=== PATIENT | female | born 1950 | race Caucasian/White ===

== ENCOUNTER 2023-10-08 14:36 | Inpatient (IN) ==
[2023-10-08] MEDS ORDERED: Patient's ALLERGY Info needs ENTERED SCH (14:43)
[2023-10-08] MEDS ORDERED: Patient's HEIGHT &/or WEIGHT Needed SCH (14:44)
--- NOTE | 2023-10-08 14:45 | ED Triage Note ---
Date of Service October 08, 2023 Provider in Triage Author: Mamta Perez History of Present Illness This patient was briefly evaluated while in triage. An abbreviated physical exam was performed. This patient is a 73-year-old Female who presents to the ED for evaluation of bilateral rib pain with radiation to the back. Pain started 3 days ago. She states it is better when she lays on her stomach. She has had vomiting. She was seen at the ER in [place] 3 days ago when the pain started and states that she was told it was a pulled muscle. She has been taking Naprosyn at home for the pain. Physical Exam VITALS: Vitals are noted on the nurse's note and reviewed by myself. GENERAL: This is a 73-year-old female, sitting in a wheelchair in triage, crying in pain. SKIN: The skin was without rashes. HEART: Regular rate and rhythm without murmurs gallops or rubs. LUNGS: Clear to auscultation bilaterally without wheezes, rales or rhonchi. ABDOMEN: Positive bowel sounds x 4. Soft, nontender to palpation. MUSCULOSKELETAL: Tenderness to palpation with very light palpation throughout the mid back/flank. NEURO: Patient was alert and oriented to person place and time. Initial orders for labs and / or imaging were placed and patient was placed in the waiting area until a bed is available. Please see further documentation for the full ED course.
--- NOTE | 2023-10-08 15:14 | XRay Report ---
[place] CHEST RADIOGRAPH CLINICAL HISTORY: Bilateral rib pain. COMPARISON STUDY: No previous studies for comparison. FINDINGS: There is no pneumothorax or pleural effusion. No consolidation is identified. 2.9 cm right midlung nodular density is present. Cardiac size is normal. Mediastinal contours are normal. There is no evidence for pulmonary edema. No rib fractures are identified although sensitivity is diminished given radiographic technique. Suspected calcific tendinitis of the right rotator cuff. IMPRESSION: 1. 2.9 cm right midlung nodular density. A chest CT is recommended to exclude a pulmonary nodule. 2. No acute cardiopulmonary findings. ACT 112: Positive. There are findings on this exam that require communication between the performing entity and the patient following Patient Test Result Information Act ([place] Act 112) guidelines. Electronically signed by: Sae Carrizales M.D. 10/08/2023 3:12 PM
[2023-10-08 16:24] LABS: Basophils # (auto) 0.02 K/uL (0.00-0.20); Basophils % (auto) 0.2 %; Eosinophils # (auto) 0.01 K/uL (0.00-0.50); Eosinophils % (auto) 0.1 %; Hematocrit (blood only) 40.3 % (37.0-47.0); Hemoglobin 14.7 g/dl (12.0-16.0); Immature Granulocytes # (auto) 0.04 K/uL (0.01-0.20); Immature Granulocytes % (auto) 0.4 %; Lymphocytes # (auto) 1.75 K/uL (1.20-3.40); Mean Corpuscular Hemoglobin 33.6 pg (25.0-34.0); Mean Corpuscular Hgb Conc 36.5 g/dL (32.0-36.0); Mean Platelet Volume 9.6 fL (9.4-12.4); Monocytes # (auto) 1.04 K/uL (0.11-0.59); Monocytes % (auto) 9.5 %; Neutrophils # (auto) 8.05 K/uL (1.40-6.50); Neutrophils % (auto) 73.8 %; Platelet Count 291 K/uL (130-400); RDW Coefficient of Variation 12.4 % (11.5-14.5); RDW Standard Deviation 41.5 fL (36.4-46.3); Red Blood Count 4.38 M/uL (4.20-5.40); White Blood Count 10.91 K/ul (4.8-10.8)
[2023-10-08 17:09] LABS: Alanine Aminotransferase 25 U/L (7-52); Albumin Globulin Ratio 1.3 (0.9-2); Albumin Level 4.3 gm/dl (3.4-5.0); Alkaline Phosphatase 91 U/L (34-104); Anion Gap 10 (3-11); BUN Creatinine Ratio 12.7 (10-20); Bilirubin,Total 0.9 mg/dl (0.2-1.0); Blood Urea Nitrogen 7 mg/dl (6-23); Calcium 9.9 mg/dl (8.6-10.3); Carbon Dioxide 28 mmol/L (21-32); Chloride 87 mmol/L (98-107); Est GFR (African American) 106.3 ml/min; Est GFR (Non-African American) 91.8 ml/min; Globulin 3.4 gm/dl (2.5-4.0); Glucose 95 mg/dl (70-99(Fasting)); Lipase 15 U/L (11-82); Sodium 125 mmol/L (136-145); Total Protein 7.7 gm/dl (6.0-8.3); Troponin I High Sensitivity 8.5 pg/ml (0-14)
[2023-10-08 17:15] LABS: Potassium 3.8 mmol/L (3.5-5.1)
[2023-10-08 17:20] LABS: Aspartate Aminotransferase 34 U/L (13-39)
[2023-10-08] MEDS ORDERED: OPTIRAY 320 500ml IV ONE (18:59)
--- NOTE | 2023-10-08 19:38 | CT Scan Report ---
Exam(s): CT CHEST With Contrast IV Amt: 88ML OPTIRAY 320 EXAM: CT Chest With Intravenous Contrast CLINICAL HISTORY: Reason for exam: chest pain; back pain. TECHNIQUE: Axial computed tomography images of the chest with intravenous contrast. CTDI is 15.98 mGy and DLP is 483.99 mGy-cm. Automated exposure control was utilized for the study. A dose lowering technique was utilized adhering to the principles of ALARA. CONTRAST: Patient received 88ML OPTIRAY 320 of IV contrast COMPARISON: No relevant prior studies available. FINDINGS: Lungs: Mild centrilobular emphysema. Small focal consolidation and surrounding patchy opacities within the anterior aspect of the right upper/right middle lobes. Additional patchy alveolar opacities in the posterior right lung. Left lung appears clear. Pleural space: Unremarkable. No pneumothorax. No significant effusion. Heart: Coronary artery atherosclerosis, aortic valvular calcifications, and mitral annular calcifications. Normal heart size. No pericardial effusion. Thyroid: Unremarkable thyroid gland. Bones/joints: No acute fracture or dislocation. Chronic 70% compression fracture at T7. Soft tissues: Unremarkable. Vasculature: No thoracic aortic aneurysm or dissection. Normal caliber main pulmonary artery. Lymph nodes: Unremarkable. No lymphadenopathy. IMPRESSION: Right lung pneumonia, predominantly involving the anterior right upper/middle lobes. Imaging follow-up to resolution recommended. Electronically signed by: Cami Tabor M.D. 10/08/23 19:37 PM
[2023-10-08] MEDS ORDERED: DOXYCYCLINE HYCLATE 100 MG CAP PO STA (20:55)
[2023-10-08] MEDS ORDERED: SODIUM CHLORIDE 0.9% 1,000 ML IV ONE (20:55)
[2023-10-08] MEDS ORDERED: MoRPHine SULFATE 4 MG/ML 1 ML CARP\\VIAL IV STA (21:13)
--- NOTE | 2023-10-08 21:16 | Emergency Department Note ---
Impression & Plan Pneumonia ED Provider Note HISTORY OF PRESENT ILLNESS: Patient is a 73-year-old female presenting with bilateral chest pain and bilateral upper back pain. Reports that she has been having symptoms for the last 6 days. Reports pain initially started 6 days ago and she was evaluated at an outside emergency department 3 days ago after continued pain. Reports that she was told it was muscle spasms and was prescribed naproxen. She reports that the pain significantly worsened in the last 48 hours. Naproxen is not making her pain any better. Denies any significant shortness of breath. Reports that any movements cause the pain to be worse. She had an episode of vomiting. Denies any history of DVT or PE. She is not on any anticoagulation. Denies any abdominal pain. Describes the diffuse anterior and posterior chest pain as a pressure and sharp sensation. Reports that has been constant since onset 6 days ago but has progressively worsened. Denies any significant cough or fever at home. ROS: as above PHYSICAL EXAM: Constitutional: Patient appears in no acute distress. HENT: Head: Normocephalic and atraumatic. Eyes: EOMI, PERRL Mouth/Throat: Mucous membranes moist. Neck: Trachea midline. Neck supple. Cardiovascular: RRR, No murmurs, rubs or gallops. Intact distal pulses. Pulmonary/Chest: No respiratory distress. Breath sounds clear and equal bilaterally. No wheezes or rales. Abdominal: Abdomen soft, no tenderness, rebound or guarding. Back: No midline spinal tenderness and no CVA tenderness. Patient has diffuse tenderness to palpation of her upper back and anterior chest. Any slight palpation of the upper back causes the patient to cry in pain. Musculoskeletal: No edema, tenderness or deformity noted. Skin: Warm and dry. No rash, erythema, pallor or cyanosis Psychiatric: Appropriate mood and affect for situation. Neurological: Alert and keenly responsive. CN II-XII grossly intact, moving all extremities equally and fully. MDM: - Vitals signs showed hypertension. - History obtained via patient. Patient presents with bilateral chest pain and bilateral upper back pain. Patient reports has been having symptoms for the last 6 days. Reports the pain initially started 6 days ago under her bilateral breast and wraps around into her bilateral upper back. States that she was seen in outside facility 3 days ago and was told it was muscle spasms. She states that the symptoms have significantly worsened in the last 48 hours. States the pain is a constant pressure and sharp sensation. Denies any significant shortness of breath. Denies any DVT or PE history. - Chronic conditions affecting care: none - Differential diagnoses include, but are not limited to: Acute coronary syndrome; pulmonary embolism; dissection; tension pneumothorax; esophageal rupture; pneumonia - Order placed for continuous cardiac monitoring. At this time, monitor showed rate of 81 bpm with normal sinus rhythm, per my interpretation. - External medical records reviewed. - EKG interpreted by myself showed normal sinus rhythm. Rate 81 bpm. QTc 408. No acute ischemic changes - Laboratory workup interpreted by myself showed slight leukocytosis (WBC 10.91); hyponatremia (Na 125); normal troponin; normal lipase - CXR negative for obvious pneumonia, per my interpretation. Radiology notes a right-sided pulmonary nodule - CT chest with IV contrast showed a right lung pneumonia involving the right upper/middle lobes. - PDMP reviewed. Patient initially given 4 mg IV morphine for her significant pain. On reassessment, she still complaining of pain and was given 30 mg of IV Toradol. - Given 1L NS and PO doxycycline for pneumonia. - Initally plan to discharge the patient home, given that she does not have any significant leukocytosis or oxygen requirement. However, she is still complaining of significant pain and reports she cannot go home like this - Discussion was had with child care attendant school about patient's case and need for admission - Hospitalist, Dr. Klein, consulted for admission - Patient admitted to [facility] Hospitalist service for further evaluation and management. ASSESSMENT AND PLAN: Diagnosis: pneumonia; back pain Plan: admit Past Med/Surg History Social History Smoking Status: Never smoker Feels Safe at Home: Yes Allergies Allergies Allergy/AdvReac Type Severity Reaction Status Date / Time ibuprofen [From Motrin] AdvReac Vomiting Verified 10/08/23 23:53 Home Meds Home Medications Medication Instructions Recorded Confirmed carvedilol 3.125 mg tablet 3.125 mg PO BID 10/09/23 10/09/23 escitalopram oxalate 20 mg tablet 20 mg PO DAILY 10/09/23 10/09/23 lisinopril 10 mg tablet 10 mg PO DAILY 10/09/23 10/09/23 omeprazole 20 mg capsule,delayed 20 mg PO DAILY 10/09/23 10/09/23 release rosuvastatin 5 mg tablet 5 mg PO DAILY 10/09/23 10/09/23 Results & Data (ED) Vital Signs Vital Signs - 24 hr 10/08/23 14:43 10/08/23 20:37 10/08/23 20:50 Temperature 36.9 C Temperature Source Temporal Artery Scan Pulse Rate 97 H 117 H Pulse Rate [Apical] 71 Pulse Rhythm [Apical] Regular Pulse Strength [Apical] Normal Respiratory Rate 20 17 Respiratory Effort / Characteristics Non-Labored Spontaneous Non-Labored Spontaneous Respiratory Depth Normal Normal Respiratory Pattern Regular Blood Pressure 186/105 H Blood Pressure [Right Arm] 150/95 H Blood Pressure Mean 132 Blood Pressure Mean [Right Arm] 113 Blood Pressure Position [Right Arm] Semi-fowlers Pulse Oximetry 93 97 Oxygen Delivery Method Room Air Room Air Sepsis Recent Fever Within 48 Hours No Sepsis New/Unexplained Change in Mental Status No Sepsis Action Taken by Nursing No Action Required 10/09/23 00:50 Temperature Temperature Source Pulse Rate 81 Pulse Rate [Apical] Pulse Rhythm [Apical] Pulse Strength [Apical] Respiratory Rate Respiratory Effort / Characteristics Respiratory Depth Respiratory Pattern Blood Pressure Blood Pressure [Right Arm] Blood Pressure Mean Blood Pressure Mean [Right Arm] Blood Pressure Position [Right Arm] Pulse Oximetry Oxygen Delivery Method Sepsis Recent Fever Within 48 Hours Sepsis New/Unexplained Change in Mental Status Sepsis Action Taken by Nursing Laboratory Data 10/08/23 16:07 10/08/23 16:07 Lab Results 10/08/23 10/09/23 Range/Units 16:07 00:09 WBC 10.91 H (4.8-10.8) K/ul RBC 4.38 (4.20-5.40) M/uL Hgb 14.7 (12.0-16.0) g/dl Hct 40.3 (37.0-47.0) % MCV 92.0 (80.0-100.0) fL MCH 33.6 (25.0-34.0) pg MCHC 36.5 H (32.0-36.0) g/dL RDW Std Deviation 41.5 (36.4-46.3) fL RDW Coeff of Latesha 12.4 (11.5-14.5) % Plt Count 291 (130-400) K/uL MPV 9.6 (9.4-12.4) fL Immature Gran % (Auto) 0.4 % Neut % (Auto) 73.8 % Lymph % (Auto) 16.0 % [place] % (Auto) 9.5 % Eos % (Auto) 0.1 % Baso % (Auto) 0.2 % Neut # (Auto) 8.05 H (1.40-6.50) K/uL Lymph # (Auto) 1.75 (1.20-3.40) K/uL [place] # (Auto) 1.04 H (0.11-0.59) K/uL Eos # (Auto) 0.01 (0.00-0.50) K/uL Baso # (Auto) 0.02 (0.00-0.20) K/uL Immature Gran # (Auto) 0.04 (0.01-0.20) K/uL Sodium 125 L (136-145) mmol/L Potassium 3.8 (3.5-5.1) mmol/L Chloride 87 L (98-107) mmol/L Carbon Dioxide 28 (21-32) mmol/L Anion Gap 10 (3-11) BUN 7 (6-23) mg/dl Creatinine 0.55 L (0.6-1.2) mg/dl Est Cr Clr Drug Dosing Not Reportable Est GFR ( Amer) 106.3 ml/min Est GFR (Non-Af Amer) 91.8 ml/min BUN/Creatinine Ratio 12.7 (10-20) Glucose 95 (70-99(Fasting)) mg/dl Calcium 9.9 (8.6-10.3) mg/dl Total Bilirubin 0.9 (0.2-1.0) mg/dl AST 34 (13-39) U/L ALT 25 (7-52) U/L Alkaline Phosphatase 91 (34-104) U/L Troponin I High Sens 8.5 (0-14) pg/ml Total Protein 7.7 (6.0-8.3) gm/dl Albumin 4.3 (3.4-5.0) gm/dl Globulin 3.4 (2.5-4.0) gm/dl Albumin/Globulin Ratio 1.3 (0.9-2) Lipase 15 (11-82) U/L Urine Color Yellow Urine Appearance Clear (Clear) Urine pH 6.0 (4.5-7.5) Ur Specific [place] > 1.045 H (1.000-1.030) Urine Protein Negative (Negative) Urine Glucose (UA) Negative (Negative) Urine Ketones 1+ H (Negative) Urine Blood Trace H (Negative) Urine Nitrite Negative (Negative) Urine Bilirubin Negative (Negative) Urine Urobilinogen Negative (Negative) Ur Leukocyte Esterase Negative (Negative) Urine WBC (Auto) 1-5 (0-5) /hpf Urine RBC (Auto) 5-10 H (0-4) /hpf U Hyaline Cast (Auto) 1-5 (0-5) /lpf U Epithel Cells (Auto) >30 H (0-5) /lpf Urine Bacteria (Auto) Negative (Negative) Administered Medications Hydromorphone HCl (Hydromorphone Inj 0.5 Mg/0.5 Ml Syr) 0.5 mg IV Q3H PRN PRN Reason: Pain Stop: 10/22/23 23:22 Last Admin: 10/09/23 00:19 Dose: 0.5 mg Documented By: BETH Sodium Chloride (Nss) 1,000 mls @ 50 mls/hr IV .Q20H JACINTA Stop: 11/07/23 23:29 Last Admin: 10/09/23 00:23 Dose: 50 mls/hr Documented By: BETH Discontinued Medications Doxycycline Hyclate (Doxycycline Hyclate 100 Mg Cap) 100 mg PO NOW STA Stop: 10/08/23 20:56 Last Admin: 10/08/23 21:12 Dose: 100 mg Documented By: NIRU Sodium Chloride (Nss) 1,000 mls @ 999 mls/hr IV .Q1H1M ONE Stop: 10/08/23 21:55 Last Infusion: 10/08/23 23:00 Dose: Infused Documented By: Admin: 10/08/23 21:13 Dose: 999 mls/hr Documented By: NIRU Ioversol (Optiray 320 500ml) 88 ml IV ONCE ONE Stop: 10/08/23 19:00 Last Admin: 10/08/23 19:00 Dose: 88 ml Documented By: SONIDO Ketorolac Tromethamine (Ketorolac 30 Mg/Ml Vial) 30 mg IV NOW ONE Stop: 10/08/23 21:55 Last Admin: 10/08/23 22:07 Dose: 30 mg Documented By: NIRU Lorazepam (Lorazepam 0.5 Mg Tab) 0.5 mg PO NOW STA Stop: 10/09/23 00:00 Last Admin: 12/27/23 00:18 Dose: 0.5 mg Documented By: BETH Morphine Sulfate (Morphine Sulfate 4 Mg/Ml 1 Ml Carp\Vial) 4 mg IV NOW STA Stop: 10/08/23 21:14 Last Admin: 10/08/23 21:20 Dose: 4 mg Documented By: NIRU Imaging Data Radiologist's Impression: Chest X-Ray 10/08/23 14:47 [place] CHEST RADIOGRAPH CLINICAL HISTORY: Bilateral rib pain. COMPARISON STUDY: No previous studies for comparison. FINDINGS: There is no pneumothorax or pleural effusion. No consolidation is identified. 2.9 cm right midlung nodular density is present. Cardiac size is normal. Mediastinal contours are normal. There is no evidence for pulmonary edema. No rib fractures are identified although sensitivity is diminished given radiographic technique. Suspected calcific tendinitis of the right rotator cuff. IMPRESSION: 1. 2.9 cm right midlung nodular density. A chest CT is recommended to exclude a pulmonary nodule. 2. No acute cardiopulmonary findings. ACT 112: Positive. There are findings on this exam that require communication between the performing entity and the patient following Patient Test Result Information Act ([place] Act 112) guidelines. Electronically signed by: Sae Carrizales M.D. 10/08/2023 3:[address] 10/08/23 18:06 Exam(s): CT CHEST With Contrast IV Amt: 88ML OPTIRAY 320 EXAM: CT Chest With Intravenous Contrast CLINICAL HISTORY: Reason for exam: chest pain; back pain. TECHNIQUE: Axial computed tomography images of the chest with intravenous contrast. CTDI is 15.98 mGy and DLP is 483.99 mGy-cm. Automated exposure control was utilized for the study. A dose lowering technique was utilized adhering to the principles of ALARA. CONTRAST: Patient received 88ML OPTIRAY 320 of IV contrast COMPARISON: No relevant prior studies available. FINDINGS: Lungs: Mild centrilobular emphysema. Small focal consolidation and surrounding patchy opacities within the anterior aspect of the right upper/right middle lobes. Additional patchy alveolar opacities in the posterior right lung. Left lung appears clear. Pleural space: Unremarkable. No pneumothorax. No significant effusion. Heart: Coronary artery atherosclerosis, aortic valvular calcifications, and mitral annular calcifications. Normal heart size. No pericardial effusion. Thyroid: Unremarkable thyroid gland. Bones/joints: No acute fracture or dislocation. Chronic 70% compression fracture at T7. Soft tissues: Unremarkable. Vasculature: No thoracic aortic aneurysm or dissection. Normal caliber main pulmonary artery. Lymph nodes: Unremarkable. No lymphadenopathy. IMPRESSION: Right lung pneumonia, predominantly involving the anterior right upper/middle lobes. Imaging follow-up to resolution recommended. Electronically signed by: Cami Tabor M.D. 10/08/23 19:37 PM Discharge Plan Visit Data Chief Complaint: Illness Stated Complaint: VOMITING, BACK PAIN ED Provider: Sangeeta Rhodes Discharge Problem: Pneumonia Forms Stand Alone Forms: [facility] [employer] Prescriptions Prescriptions: No Action carvedilol 3.125 mg tablet 3.125 mg PO BID lisinopril 10 mg tablet 10 mg PO DAILY omeprazole 20 mg capsule,delayed release(DR/EC) 20 mg PO DAILY escitalopram oxalate 20 mg tablet 20 mg PO DAILY rosuvastatin 5 mg tablet 5 mg PO DAILY Referrals Referrals: PCP,NO [Primary Care Provider] -
[2023-10-08] MEDS ORDERED: KETOROLAC 30 MG/ML VIAL IV ONE (21:54)
[2023-10-08] MEDS ORDERED: SODIUM CHLORIDE 0.9% 1,000 ML IV SCH (23:30)
[2023-10-08] MEDS ORDERED: LORazepam 0.5 MG TAB PO STA (23:59)
[2023-10-09] MEDS: HYDROmorphone INJ 0.5 MG/0.5 ML SYR IV PRN ×5 (00:19→20:03)
[2023-10-09 00:29] LABS: Appearance Urine Clear (Clear); Bacteria Urine Automated Negative (Negative); Bilirubin Urine Negative (Negative); Blood Urine Trace (Negative); Color Urine Yellow; Epithelial Cell Urine Auto >30 /lpf (0-5); Glucose Urine UA Negative (Negative); Ketones Urine 1+ (Negative); Leukocyte Esterase Urine Negative (Negative); Nitrite Urine Negative (Negative); Protein Urine Negative (Negative); Specific Gravity Urine > 1.045 (1.000-1.030); Urobilinogen Urine Negative (Negative)
--- NOTE | 2023-10-09 00:31 | History & Physical Report ---
Date of Service October 09, 2023 Assessment & Plan (1) Pneumonia: Plan: 70-year-old female with past medical significant for hypertension, hyperlipidemia, GERD, anxiety presents with ongoing pain in the lower rib cage. Patient she smokes 1 pack daily daily for many years. She has smoker's cough. Coughing making her chest hurt more. Seems this is going for more than 6 days now. She was in the [facility] 3 days ago and was told that she has musculoskeletal pain. As it was getting worse she came here today. Coughing up whitish phlegm. Denies any fevers. No shortness of breath. Not eating. Poor appetite. Some nausea and 1 episode of vomiting. No abdominal pain. Has painful micturating. States somewhat anxious and requesting medicines to calm her. Pneumonia Chest pain more while coughing Chest x-ray showing 2.9 cm right midlung nodular density CT chest showing right lung pneumonia predominantly involving the anterior right upper/middle lobes Starting on IV Zosyn and Doxy Pain control Will monitor the response Hyponatremia Sodium of 125 Patient states she did not eat for last few days Gentle fluids normal saline 50 mill per hour Will check serum osmolality, urine osmolality and urine sodium levels BMP every 6 hours Slow correction Recently Lexapro dose was increased as per patient. Will hold Lexapro for now Consult nephrology in a.m. Hypertension Continue Coreg and lisinopril We will monitor GERD On omeprazole Hyperlipidemia On statin Anxiety Holding Lexapro for now DVT prophylaxis Lovenox Disposition Telemetry floor Full code History of Present Illness Chief Complaint: 70-year-old female with past medical history significant for hypertension, hyperlipidemia, GERD, anxiety presents with ongoing pain in the bilateral lower rib cage. Patient states smokes 1 pack daily daily for many years. She has smoker's cough. Coughing making her chest hurt more. Seems this is going for more than 6 days now. She was in the [facility] 3 days ago and was told that she has musculoskeletal pain. As it was getting worse she came here today. Coughing up whitish phlegm. Denies any fevers. No shortness of breath. Not eating. Poor appetite. Some nausea and had 1 episode of vomiting. No abdominal pain. Stools are somewhat loose. Has painful micturating. States somewhat anxious and requesting medicines to calm her. Past medical history. As mentioned above Past surgical history. None as per patient Social history. Smokes 1 pack a day for last 60 years. Denies alcohol use. Family history. Mother of old age. Father had alcoholism and kidney failure. Primary Care Provider: NO PCP Allergies Allergy/AdvReac Type Severity Reaction Status Date / Time ibuprofen [From Motrin] AdvReac Vomiting Verified 10/08/23 23:53 Home Medications Medication Instructions Recorded Confirmed Type carvedilol 3.125 mg tablet 3.125 mg PO BID 10/09/23 10/09/23 History escitalopram oxalate 20 mg tablet 20 mg PO DAILY 10/09/23 10/09/23 History lisinopril 10 mg tablet 10 mg PO DAILY 10/09/23 10/09/23 History omeprazole 20 mg capsule,delayed 20 mg PO DAILY 10/09/23 10/09/23 History release rosuvastatin 5 mg tablet 5 mg PO DAILY 10/09/23 10/09/23 History Past Med/Surg History Social History Smoking Status: Heavy tobacco smoker Tobacco Type: Cigarettes Hx Alcohol Use: Yes Alcohol type: beer Hx Substance Use: No Preferred Language: Tanzanian Communication Ability: Effective Flexographic Press Operator Required: No Beliefs That Will Affect Care: None Current Living Situation: Alone Feels Safe at Home: Yes Assistive Devices: Denture - Upper, Denture - Lower and Glasses Review of Systems Review of Systems: All systems reviewed & are unremarkable except as noted in HPI & below Physical Exam Physical Exam: General- Not in distress Head- atraumatic Eyes- PERRL. ENT- oropharynx clear Neck- supple, no JVD. Lungs- clear to auscultation no wheezing or crackles. Heart- regular rhythm; no murmur, no gallop. Abdomen- normal bowel sounds, soft, nontender, no distension Extremities- no pretibial edema, no erythema seen. Neuro- alert, oriented x 3;, EOMI; no facial palsy; no dysarthria; moves extrem ities. Skin- warm & dry Results & Data Results & Data Vital Signs (Past 12 Hours) Vital Signs Temp Pulse Pulse Resp BP BP Pulse Ox 10/08/23 20:50 117 H 10/08/23 20:37 71 17 150/95 H 97 10/08/23 14:43 36.9 C 97 H 20 186/105 H 93 O2 Del Method 10/08/23 20:50 10/08/23 20:37 Room Air 10/08/23 14:43 Room Air Diagnostic Findings Laboratory Results WBC 10.91 K/ul (4.8-10.8) H 10/08/23 16:07 RBC 4.38 M/uL (4.20-5.40) 10/08/23 16:07 Hgb 14.7 g/dl (12.0-16.0) 10/08/23 16:07 Hct 40.3 % (37.0-47.0) 10/08/23 16:07 MCV 92.0 fL (80.0-100.0) 10/08/23 16:07 MCH 33.6 pg (25.0-34.0) 10/08/23 16:07 MCHC 36.5 g/dL (32.0-36.0) H 10/08/23 16:07 RDW Std Deviation 41.5 fL (36.4-46.3) 10/08/23 16:07 RDW Coeff of Latesha 12.4 % (11.5-14.5) 10/08/23 16:07 Plt Count 291 K/uL (130-400) 10/08/23 16:07 MPV 9.6 fL (9.4-12.4) 10/08/23 16:07 Immature Gran % (Auto) 0.4 % 10/08/23 16:07 Neut % (Auto) 73.8 % 10/08/23 16:07 Lymph % (Auto) 16.0 % 10/08/23 16:07 [place] % (Auto) 9.5 % 10/08/23 16:07 Eos % (Auto) 0.1 % 10/08/23 16:07 Baso % (Auto) 0.2 % 10/08/23 16:07 Neut # (Auto) 8.05 K/uL (1.40-6.50) H 10/08/23 16:07 Lymph # (Auto) 1.75 K/uL (1.20-3.40) 10/08/23 16:07 [place]ion # (Auto) 1.04 K/uL (0.11-0.59) H 10/08/23 16:07 Eos # (Auto) 0.01 K/uL (0.00-0.50) 10/08/23 16:07 Baso # (Auto) 0.02 K/uL (0.00-0.20) 10/08/23 16:07 Immature Gran # (Auto) 0.04 K/uL (0.01-0.20) 10/08/23 16:07 Sodium 125 mmol/L (136-145) L 10/08/23 16:07 Potassium 3.8 mmol/L (3.5-5.1) 10/08/23 16:07 Chloride 87 mmol/L (98-107) L 10/08/23 16:07 Carbon Dioxide 28 mmol/L (21-32) 10/08/23 16:07 Anion Gap 10 (3-11) 10/08/23 16:07 BUN 7 mg/dl (6-23) 10/08/23 16:07 Creatinine 0.55 mg/dl (0.6-1.2) L 10/08/23 16:07 Est Cr Clr Drug Dosing Not Reportable 10/08/23 16:07 Est GFR ( Amer) 106.3 ml/min 10/08/23 16:07 Est GFR (Non-Af Amer) 91.8 ml/min 10/08/23 16:07 BUN/Creatinine Ratio 12.7 (10-20) 10/08/23 16:07 Glucose 95 mg/dl (70-99(Fasting)) 10/08/23 16:07 Calcium 9.9 mg/dl (8.6-10.3) 10/08/23 16:07 Total Bilirubin 0.9 mg/dl (0.2-1.0) 10/08/23 16:07 AST 34 U/L (13-39) 10/08/23 16:07 ALT 25 U/L (7-52) 10/08/23 16:07 Alkaline Phosphatase 91 U/L (34-104) 10/08/23 16:07 Troponin I High Sens 8.5 pg/ml (0-14) 10/08/23 16:07 Total Protein 7.7 gm/dl (6.0-8.3) 10/08/23 16:07 Albumin 4.3 gm/dl (3.4-5.0) 10/08/23 16:07 Globulin 3.4 gm/dl (2.5-4.0) 10/08/23 16:07 Albumin/Globulin Ratio 1.3 (0.9-2) 10/08/23 16:07 Lipase 15 U/L (11-82) 10/08/23 16:07 Impressions Chest X-Ray 10/08/23 14:47 [place] CHEST RADIOGRAPH CLINICAL HISTORY: Bilateral rib pain. COMPARISON STUDY: No previous studies for comparison. FINDINGS: There is no pneumothorax or pleural effusion. No consolidation is identified. 2.9 cm right midlung nodular density is present. Cardiac size is normal. Mediastinal contours are normal. There is no evidence for pulmonary edema. No rib fractures are identified although sensitivity is diminished given radiographic technique. Suspected calcific tendinitis of the right rotator cuff. IMPRESSION: 1. 2.9 cm right midlung nodular density. A chest CT is recommended to exclude a pulmonary nodule. 2. No acute cardiopulmonary findings. ACT 112: Positive. There are findings on this exam that require communication between the performing entity and the patient following Patient Test Result Information Act ([place] Act 112) guidelines. Electronically signed by: Sae Carrizales M.D. 10/08/2023 3:[address] 10/08/23 18:06 Exam(s): CT CHEST With Contrast IV Amt: 88ML OPTIRAY 320 EXAM: CT Chest With Intravenous Contrast CLINICAL HISTORY: Reason for exam: chest pain; back pain. TECHNIQUE: Axial computed tomography images of the chest with intravenous contrast. CTDI is 15.98 mGy and DLP is 483.99 mGy-cm. Automated exposure control was utilized for the study. A dose lowering technique was utilized adhering to the principles of ALARA. CONTRAST: Patient received 88ML OPTIRAY 320 of IV contrast COMPARISON: No relevant prior studies available. FINDINGS: Lungs: Mild centrilobular emphysema. Small focal consolidation and surrounding patchy opacities within the anterior aspect of the right upper/right middle lobes. Additional patchy alveolar opacities in the posterior right lung. Left lung appears clear. Pleural space: Unremarkable. No pneumothorax. No significant effusion. Heart: Coronary artery atherosclerosis, aortic valvular calcifications, and mitral annular calcifications. Normal heart size. No pericardial effusion. Thyroid: Unremarkable thyroid gland. Bones/joints: No acute fracture or dislocation. Chronic 70% compression fracture at T7. Soft tissues: Unremarkable. Vasculature: No thoracic aortic aneurysm or dissection. Normal caliber main pulmonary artery. Lymph nodes: Unremarkable. No lymphadenopathy. IMPRESSION: Right lung pneumonia, predominantly involving the anterior right upper/middle lobes. Imaging follow-up to resolution recommended. Electronically signed by: Cami Tabor M.D. 10/08/23 19:37 PM ECG Additional Comments: ECG. Normal sinus rhythm rate of 81. No acute ST changes seen. Code Status & VTE Plan VTE Prophylaxis Plan VTE Prophylaxis will be ordered: Yes
[2023-10-09] MEDS ORDERED: NITROGLYCERIN SL 0.4 MG/TAB TAB SL PRN (01:30)
[2023-10-09] MEDS ORDERED: guaiFENesin/CODEINE 100MG/10MG 5ML UDC PO PRN (01:30)
[2023-10-09] MEDS ORDERED: ACETAMINOPHEN 325 MG TAB PO PRN (01:30)
[2023-10-09] MEDS ORDERED: PIPERACILLIN/TAZOBACTAM 4.5 GM/100ML D5W IV ONE (01:41)
[2023-10-09] MEDS: PIPERACILLIN/TAZOBACTAM 4.5 GM in DEXTROSE 5% MINI-B 100 ML IV SCH ×3 (01:49→17:06)
[2023-10-09] MEDS: ENOXAPARIN INJ 40 MG/0.4 ML SYR SQ SCH ×2 (01:49→21:40)
[2023-10-09 04:56] LABS: Basophils # (auto) 0.01 K/uL (0.00-0.20); Basophils % (auto) 0.1 %; Eosinophils # (auto) 0.07 K/uL (0.00-0.50); Hematocrit (blood only) 36.3 % (37.0-47.0); Hemoglobin 12.7 g/dl (12.0-16.0); Immature Granulocytes # (auto) 0.02 K/uL (0.01-0.20); Immature Granulocytes % (auto) 0.3 %; Lymphocytes # (auto) 2.65 K/uL (1.20-3.40); Lymphocytes % (auto) 36.1 %; Mean Corpuscular Hemoglobin 32.9 pg (25.0-34.0); Mean Platelet Volume 9.5 fL (9.4-12.4); Monocytes # (auto) 0.79 K/uL (0.11-0.59); Monocytes % (auto) 10.8 %; Neutrophils % (auto) 51.7 %; Platelet Count 242 K/uL (130-400); RDW Coefficient of Variation 12.2 % (11.5-14.5); RDW Standard Deviation 42.6 fL (36.4-46.3); Red Blood Count 3.86 M/uL (4.20-5.40); White Blood Count 7.34 K/ul (4.8-10.8)
[2023-10-09 05:14] LABS: BUN Creatinine Ratio 9.4 (10-20); Calcium 9.1 mg/dl (8.6-10.3); Creatinine Clr Calc Pharmacy 83.9 ml/min; Est GFR (African American) 107.6 ml/min; Est GFR (Non-African American) 92.9 ml/min; Magnesium 1.5 mg/dl (1.7-2.4); Potassium 3.3 mmol/L (3.5-5.1)
[2023-10-09] MEDS ORDERED: POTASSIUM CHLORIDE CRTAB 20 MEQ TABCR PO STA (07:13)
--- NOTE | 2023-10-09 07:31 | XRay Report ---
KUB HISTORY: Acute generalized abdominal pain abdomina pain? back pain COMPARISON: Chest CT 10/08/2023 FINDINGS: Partially imaged right basilar airspace opacities. Air-filled loops of large bowel are note d. Study is limited secondary to positioning with lateral abdomen excluded from the [id number]. No nobstructive bowel gas pattern. Renal shadows are obscured by bowel gas. No renal calculi. No ureter al calculi. No pneumoperitoneum or pneumatosis. Mild lumbar levoscoliosis. No fracture. IMPRESSION: Nonobstructive bowel gas pattern. ACT 112: Negative or not required by law. The above report was generated using voice recognition software. It may contain grammatical, syntax o r spelling errors. Electronically signed by: Kai Gandhi M.D. 10/09/2023 7:28 AM
[2023-10-09] MEDS: MAGNESIUM SULFATE / D5W 1 GM/100 ML BAG IV SCH ×2 (08:23→10:35)
[2023-10-09] MEDS: BENZONATATE 100 MG CAPSULE PO SCH ×2 (08:29→14:26)
[2023-10-09] MEDS: DOXYCYCLINE HYCLATE 100 MG CAP PO SCH ×2 (08:29→20:01)
[2023-10-09] MEDS: lisinopril 10 MG TAB PO SCH (08:30)
[2023-10-09] MEDS: ROSUVASTATIN CALCIUM 5 MG TAB PO SCH (08:30)
[2023-10-09] MEDS: carvediloL 3.125 MG TAB PO SCH ×2 (08:30→20:01)
[2023-10-09] MEDS: PANTOprazole 40 MG TAB PO SCH (08:30)
--- NOTE | 2023-10-09 08:49 | Electrocardiogram Report ---
Test Reason : Blood Pressure : / mmHG Vent. Rate : 081 BPM Atrial Rate : 081 BPM P-R Int : 208 ms QRS Dur : 068 ms QT Int : 352 ms P-R-T Axes : 071 030 062 degrees QTc Int : 408 ms Normal sinus rhythm No previous ECGs available Confirmed by Dontae Du ([id number]) on 10/09/2023 8:49:03 AM Referred By: NO PCP Confirmed By:Hugo Du
[2023-10-09 12:09] LABS: BUN Creatinine Ratio 10.5 (10-20); Calcium 9.4 mg/dl (8.6-10.3); Est GFR (African American) 105.1 ml/min; Est GFR (Non-African American) 90.7 ml/min; Potassium 3.2 mmol/L (3.5-5.1)
--- NOTE | 2023-10-09 15:25 | Nephrology Consultation ---
Date of Consultation October 09, 2023 Assessment & Plan (1) Pneumonia: Patient with pneumonia being treated with Zosyn. Given hyponatremia, recommend checking Legionella urine antigen. Continue antibiotics per primary team. 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 Recent sodium of 128. Patient also has hypokalemia. Urine osmolality was 365 and urine sodium of 43. -Stop normal saline -Will start urea 15 g twice daily -Will give potassium chloride 40 mcg daily. -Okay to monitor sodium and potassium with daily BMP History of Present Illness Reason for Consultation: Hyponatremia Requesting Physician: Claude Franco MD Attending Physician: Claude Franco MD History of Present Illness This is 73-year-old female with history of hypertension, hyperlipidemia, alcohol abuse, active smoker 1 pack/day who was admitted with chest pain and cough. She was found to have pneumonia. She was also found to have hyponatremia with sodium 125. She had a serum osmolality of 259. Urine osmolality was 365 and urine sodium of 43. She has been given normal saline at 50 mill per hour. Sodium has been fluctuating up to 130 but down to 128 most recently. She also has low potassium of 3.2. Main complaint is still lower rib cage pain bilaterally. No leg swelling. She denies drinking excessive amounts of fluids. She is on oxygen 2 L nasal cannula. Son was at the bedside. Labs and imaging were reviewed Allergies Allergy/AdvReac Type Severity Reaction Status Date / Time ibuprofen [From Motrin] AdvReac Vomiting Verified 10/08/23 23:53 Home Medications Medication Instructions Recorded Confirmed Type carvedilol 3.125 mg tablet 3.125 mg PO BID 10/09/23 10/09/23 History escitalopram oxalate 20 mg tablet 20 mg PO DAILY 10/09/23 10/09/23 History lisinopril 10 mg tablet 10 mg PO DAILY 10/09/23 10/09/23 History omeprazole 20 mg capsule,delayed 20 mg PO DAILY 10/09/23 10/09/23 History release rosuvastatin 5 mg tablet 5 mg PO DAILY 10/09/23 10/09/23 History Patient History Social History Smoking Status: Heavy tobacco smoker Tobacco Type: Cigarettes Hx Alcohol Use: Yes Alcohol type: beer Hx Substance Use: No Preferred Language: Jamaican Communication Ability: Effective Skilled Helper Required: No Beliefs That Will Affect Care: None Current Living Situation: Alone Feels Safe at Home: Yes Assistive Devices: Denture - Upper, Denture - Lower and Glasses Review of Systems 2 Review of Systems: All other systems were reviewed and negative except as noted in HPI Physical Exam 2 Physical Exam: General exam: Appears comfortable, no acute distress HEENT: Pupils are equal and reactive to light Neck: No JVD, neck is supple trachea is midline Respiratory system: Clear breath sounds bilaterally. Gastrointestinal: Abdomen is soft, non distended, non tender, bowel sounds are present CVS: Regular rate and rhythm. No murmurs, rubs or gallops Musculoskeletal: No joint or muscle tenderness Extremities: Non tender, no edema, peripheral pulses are present Neuro: Oriented, no tremors, no focal neurological deficits Skin: No rashes Results & Data Vital Signs (Past 12 Hours) Vital Signs Temp Pulse Resp BP Pulse Ox O2 Del Method O2 Flow Rate 10/09/23 09:00 37 C 72 22 119/93 97 Nasal Cannula 2 10/09/23 05:00 97 H 19 148/98 H 94 Room Air Laboratory Results 10/09/23 11:32 10/08/23 10/09/23 16:07 04:46 WBC 10.91 H 7.34 RBC 4.38 3.86 L MCV 92.0 94.0 MCH 33.6 32.9 MCHC 36.5 H 35.0 RDW Std Deviation 41.5 42.6 RDW Coeff of Latesha 12.4 12.2 Plt Count 291 242 MPV 9.6 9.5 Albumin 4.3
[2023-10-09] MEDS: POTASSIUM CHLORIDE CRTAB 20 MEQ TABCR PO SCH (16:28)
[2023-10-09] MEDS: UREA (UREA-NA) 15 GM PACK PO SCH ×2 (16:54→20:03)
[2023-10-09] MEDS: ACETAMINOPHEN 500 MG TAB PO SCH (17:15)
[2023-10-09] MEDS: oxyCODONE HCL IR 5 MG TAB (IMMEDIATE RELEASE) PO PRN (17:42)
[2023-10-09 17:46] LABS: BUN Creatinine Ratio 11.8 (10-20); Calcium 9.2 mg/dl (8.6-10.3); Creatinine Clr Calc Pharmacy 87.2 ml/min; Est GFR (Non-African American) 94.1 ml/min; Potassium 3.6 mmol/L (3.5-5.1)
[2023-10-09 18:04] LABS: D Dimer 890 ug/L FEU (0-500)
[2023-10-09] MEDS ORDERED: XOPENEX/ATROVENT 1.25mg/0.5MG NEB COMBO NEB SCH (19:00)
[2023-10-09] MEDS: SODIUM CHLOR 7% 4 ML NEB NEB SCH (19:15)
[2023-10-09] MEDS: IPRATROPIUM BROMIDE NEB SOLN 0.02% 2.5 ML VIAL INH SCH (19:15)
[2023-10-09] MEDS: LEVALBUTEROL 1.25 MG/3 ML NEB NEB SCH (19:15)
[2023-10-09] MEDS: CYCLOBENZAPRINE HCL 5 MG TAB PO SCH (20:03)
[2023-10-09 23:43] LABS: BUN Creatinine Ratio 33.3 (10-20); Calcium 9.8 mg/dl (8.6-10.3); Creatinine Clr Calc Pharmacy 74.1 ml/min; Est GFR (African American) 103.3 ml/min; Est GFR (Non-African American) 89.2 ml/min; Potassium 3.8 mmol/L (3.5-5.1)
[2023-10-10] MEDS: PIPERACILLIN/TAZOBACTAM 4.5 GM in DEXTROSE 5% MINI-B 100 ML IV SCH ×4 (00:05→23:58)
[2023-10-10] MEDS: ACETAMINOPHEN 500 MG TAB PO SCH ×4 (00:06→23:58)
[2023-10-10] MEDS: HYDROmorphone INJ 0.5 MG/0.5 ML SYR IV PRN ×5 (00:07→20:53)
[2023-10-10] MEDS: LEVALBUTEROL 1.25 MG/3 ML NEB NEB SCH ×4 (00:18→19:37)
[2023-10-10] MEDS: IPRATROPIUM BROMIDE NEB SOLN 0.02% 2.5 ML VIAL INH SCH ×4 (00:18→19:37)
[2023-10-10] MEDS: oxyCODONE HCL IR 5 MG TAB (IMMEDIATE RELEASE) PO PRN ×3 (06:06→23:58)
[2023-10-10] MEDS: SODIUM CHLOR 7% 4 ML NEB NEB SCH ×2 (07:11→19:37)
[2023-10-10] MEDS: carvediloL 3.125 MG TAB PO SCH ×2 (08:35→20:56)
[2023-10-10 08:36] LABS: Basophils # (auto) 0.02 K/uL (0.00-0.20); Basophils % (auto) 0.3 %; Eosinophils # (auto) 0.12 K/uL (0.00-0.50); Eosinophils % (auto) 1.7 %; Hematocrit (blood only) 38.6 % (37.0-47.0); Hemoglobin 13.9 g/dl (12.0-16.0); Immature Granulocytes # (auto) 0.01 K/uL (0.01-0.20); Immature Granulocytes % (auto) 0.1 %; Lymphocytes # (auto) 1.63 K/uL (1.20-3.40); Lymphocytes % (auto) 23.5 %; Mean Corpuscular Hemoglobin 33.7 pg (25.0-34.0); Mean Corpuscular Volume 93.5 fL (80.0-100.0); Mean Platelet Volume 9.3 fL (9.4-12.4); Monocytes # (auto) 0.66 K/uL (0.11-0.59); Monocytes % (auto) 9.5 %; Neutrophils # (auto) 4.51 K/uL (1.40-6.50); Neutrophils % (auto) 64.9 %; Platelet Count 262 K/uL (130-400); RDW Coefficient of Variation 12.3 % (11.5-14.5); RDW Standard Deviation 42.5 fL (36.4-46.3); Red Blood Count 4.13 M/uL (4.20-5.40); White Blood Count 6.95 K/ul (4.8-10.8)
[2023-10-10] MEDS: ADVANCED PROBIOTIC 1250 MG CAPSULE PO SCH (08:36)
[2023-10-10] MEDS: DOXYCYCLINE HYCLATE 100 MG CAP PO SCH ×2 (08:36→20:55)
[2023-10-10] MEDS: PANTOprazole 40 MG TAB PO SCH (08:36)
[2023-10-10] MEDS: CYCLOBENZAPRINE HCL 5 MG TAB PO SCH ×2 (08:36→20:55)
[2023-10-10] MEDS: lisinopril 10 MG TAB PO SCH (08:36)
[2023-10-10] MEDS: ROSUVASTATIN CALCIUM 5 MG TAB PO SCH (08:37)
[2023-10-10] MEDS: UREA (UREA-NA) 15 GM PACK PO SCH ×2 (08:37→20:53)
[2023-10-10] MEDS: POTASSIUM CHLORIDE CRTAB 20 MEQ TABCR PO SCH (08:37)
[2023-10-10] MEDS: NICOTINE 14 MG/24 HR PATCH TD SCH (08:50)
[2023-10-10 08:52] LABS: BUN Creatinine Ratio 42.3 (10-20); Calcium 9.9 mg/dl (8.6-10.3); Est GFR (African American) 108.3 ml/min; Est GFR (Non-African American) 93.5 ml/min; Potassium 3.8 mmol/L (3.5-5.1)
[2023-10-10] MEDS ORDERED: MAGNESIUM HYDROXIDE SUSP 30 ML UDC PO PRN (09:51)
--- NOTE | 2023-10-10 11:14 | Nuclear Medicine Report ---
NUCLEAR PULMONARY PERFUSION SCAN CLINICAL HISTORY: Atypical chest pain. COMPARISON STUDY: Chest x-ray and chest CT dated 10/08/2023. TECHNIQUE: Nuclear perfusion images of both lungs were obtained following the IV administration of 5. 5 mCi of technetium 99m MAA. Ventilation and perfusion images were acquired in the anterior, posterio r, and oblique projections. FINDINGS: Chest x-ray and chest CT scans performed 10/08/2023 show emphysematous change. Right upper lobe airsp jose consolidation is typical for pneumonia. Perfusion of the lungs is heterogeneous. A large perfusion defect is suggested in the right midlung. No perfusion defects are suggested in the left lung. IMPRESSION: There is a large apparent perfusion defect in the right midlung. No large pulmonary embol us was seen by chest CT on 10/08/2023 and this is of indeterminate significance. Correlation with a C T angiogram of the chest is recommended for further assessment as a pulmonary embolus is not entirely excluded. ACT 112: Negative or not required by law. Electronically signed by: Chuckie Crespo M.D. 10/10/2023 11:13 AM
[2023-10-10] MEDS: POLYETHYLENE (MIRALAX) 17 GM PACK PO SCH (11:34)
--- NOTE | 2023-10-10 11:45 | Ultrasound Report ---
BILATERAL LOWER EXTREMITY VENOUS DOPPLER CLINICAL HISTORY: elevated d dimer, r/o dvt COMPARISON STUDY: No previous studies for comparison. TECHNIQUE: Sonography of the deep venous system of the bilateral lower extremities was performed. Co mpression and augmentation were evaluated. FINDINGS: The bilateral common femoral, superficial femoral and popliteal veins were compressible. A ugmentation was normal. Flow was shown within the deep calf vessels. IMPRESSION: No evidence of deep venous thrombus within the bilateral lower extremities. ACT 112: Negative or not required by law. Electronically signed by: Sae Carrizales M.D. 10/10/2023 11:43 AM
--- NOTE | 2023-10-10 12:16 | Nephrology Progress Note ---
Date of Service October 10, 2023 Assessment & Plan (1) Pneumonia: Plan: Patient with pneumonia being treated with Zosyn. Continue antibiotics per primary team. 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 Recent sodium of 131. Patient also has hypokalemia. Urine osmolality was 365 and urine sodium of 43. -Will continue urea 15 g twice daily -Will give potassium chloride 40 mcg daily. -Okay to monitor sodium and potassium with daily [facility] Admission and Anticipated Discharge Date Admission Date: October 09, 2023 Subjective Seen for hyponatremia. She feels better today. Chest pain is subsiding. Sodium is uptrending. Review of Systems 2 Review of Systems: All other systems were reviewed and negative except as noted in HPI Physical Exam 2 Physical Exam: General exam: Appears comfortable, no acute distress HEENT: Pupils are equal and reactive to light Neck: No JVD, neck is supple trachea is midline Respiratory system: Clear breath sounds bilaterally. Gastrointestinal: Abdomen is soft, non distended, non tender, bowel sounds are present CVS: Regular rate and rhythm. No murmurs, rubs or gallops Musculoskeletal: No joint or muscle tenderness Extremities: Non tender, no edema, peripheral pulses are present Neuro: Oriented, no tremors, no focal neurological deficits Skin: No rashes Results & Data Vital Signs (Past 12 Hours) Vital Signs Temp Pulse Resp BP Pulse Ox Pulse Ox O2 Del Method 10/10/23 08:00 Room Air 10/10/23 07:11 74 20 96 Room Air 10/10/23 06:58 36.7 C 73 19 157/90 H 96 Room Air 10/10/23 03:09 36.7 C 70 18 127/79 90 Room Air 10/10/23 01:30 96 10/10/23 00:19 73 18 91 Room Air O2 Del Method 10/10/23 08:00 10/10/23 07:11 10/10/23 06:58 10/10/23 03:09 10/10/23 01:30 Room Air 10/10/23 00:19 Laboratory Results 10/10/23 08:19 10/10/23 08:19 WBC 6.95 RBC 4.13 L MCV 93.5 MCH 33.7 MCHC 36.0 RDW Std Deviation 42.5 RDW Coeff of Latesha 12.3 Plt Count 262 MPV 9.3 L
[2023-10-10] MEDS ORDERED: SODIUM CHLORIDE 0.9% 1,000 ML IV SCH (13:45)
[2023-10-10] MEDS ORDERED: OPTIRAY 320 125ml IV ONE (16:37)
--- NOTE | 2023-10-10 17:08 | CT Scan Report ---
CT ANGIOGRAPHY OF THE CHEST, PULMONARY EMBOLUS PROTOCOL CLINICAL HISTORY: Chest pain. Evaluate for deep venous thrombus. COMPARISON STUDY: Chest CT October 08, 2023. Nuclear medicine perfusion study October 10, 2023. TECHNIQUE: Following IV administration of 115 mL of Optiray, helical axial images of the chest were o btained utilizing the pulmonary embolus protocol. Maximal intensity projections and sagittal and cor onal reformats were viewed on an independent 3D workstation. IV contrast was administered without co mplication. Automated exposure control was utilized for the study. A dose lowering technique was ut ilized adhering to the principles of ALARA. FINDINGS: No pulmonary emboli are identified. There is moderate cardiomegaly and coronary artery laurel cification. No pneumothorax or pleural effusion is present. Consolidation within the anterior segment of the right upper lobe has progressed since CT of October 08, 2023, now measuring 5.8 x 2.5 cm. Th is corresponds to the finding on perfusion study. There is mild emphysema. There is no cavitation. T7 compression fracture is chronic. Abdomen and pelvis CT will be reported separately. IMPRESSION: No pulmonary emboli. The perfusion defect on nuclear medicine study performed earlier today was due t o right upper lobe pneumonia which has significantly progressed since CT of October 08, 2023. A foll ow-up chest CT in 3 months to ensure resolution is recommended. ACT 112: Negative or not required by law. Electronically signed by: Sae Carrizales M.D. 10/10/2023 5:05 PM
--- NOTE | 2023-10-10 17:13 | CT Scan Report ---
CT OF THE ABDOMEN AND PELVIS WITH CONTRAST CLINICAL HISTORY: pain, bilateral subcostal region COMPARISON STUDY: KUB October 09, 2023. TECHNIQUE: Following IV administration of 115 mL of Optiray, axial images of the abdomen and pelvis w ere obtained from the lung bases to the proximal femurs. Images were reviewed in the axial, sagittal, and coronal planes. IV contrast was administered without complication. Automated exposure control w as utilized for the study. A dose lowering technique was utilized adhering to the principles of [place] Gonzalez. CT DOSE: 1506.3 mGy.cm FINDINGS: Please note that the chest CT will be reported separately. No pneumatosis, free air or port al venous gas is present. There are no hepatic lesions. Hypodensity within the lateral segment of the liver favors focal fat. The spleen, adrenal glands and left kidney are unremarkable. There is modera te right renal atrophy. The pancreas is unremarkable. No biliary or pancreatic ductal dilatation is p resent. The gallbladder is mildly distended. There is no pericholecystic infiltration. The right colo n is mildly distended. There is no evidence for a bowel obstruction. Moderate amount of poorly formed stool within the right colon is present. There is no ascites or lymphadenopathy. No fluid collection s are present. Moderate aortoiliac atherosclerotic plaque is present. IMPRESSION: 1. No acute process within the abdomen or pelvis. 2. Mildly dilated right colon with moderate amount of poorly formed stool. No evidence for a bowel ob struction. 3. Moderate right renal atrophy. 4. Mildly distended gallbladder. No pericholecystic infiltration to strongly suggest acute cholecysti tis. ACT 112: Negative or not required by law. Electronically signed by: Sae Carrizales M.D. 10/10/2023 5:11 PM
--- NOTE | 2023-10-10 18:13 | Hospitalist Progress Note ---
Date of Service October 10, 2023 Assessment & Plan (1) Pneumonia: Plan: Per admitting service notes with addendum: 70-year-old female with past medical significant for hypertension, hyperlipidemia, GERD, anxiety presents with ongoing pain in the lower rib cage. Patient she smokes 1 pack daily daily for many years. She has smoker's cough. Coughing making her chest hurt more. Seems this is going for more than 6 days now. She was in the [facility] 3 days ago and was told that she has musculoskeletal pain. As it was getting worse she came here today. Coughing up whitish phlegm. Denies any fevers. No shortness of breath. Not eating. Poor appetite. Some nausea and 1 episode of vomiting. No abdominal pain. Has painful micturating. States somewhat anxious and requesting medicines to calm her. Pneumonia Chest pain more while coughing Chest x-ray showing 2.9 cm right midlung nodular density CT chest showing right lung pneumonia predominantly involving the anterior right upper/middle lobes Starting on IV Zosyn and Doxy Pain control Will monitor the response 10/10 Still having significant bilateral subcostal pain CT angiogram of the chest: No PE Doppler ultrasound of the lower extremity: No DVT From pleurisy? Increase oxycodone, continue as needed Dilaudid, Tylenol every 8 hours Afebrile, off oxygen supplement Continue Zosyn plus doxycycline Hyponatremia Sodium of 125 Patient states she did not eat for last few days Gentle fluids normal saline 50 mill per hour Will check serum osmolality, urine osmolality and urine sodium levels BMP every 6 hours Slow correction Recently Lexapro dose was increased as per patient. Will hold Lexapro for now 10/10 Sodium 131 Monitor daily Hypertension Continue Coreg and lisinopril GERD On omeprazole Hyperlipidemia On statin Anxiety Holding Lexapro for now DVT prophylaxis Lovenox Disposition Telemetry floor Full code Admission and Anticipated Discharge Date Admission Date: October 09, 2023 Subjective Follow-up for pneumonia, etc. Resting in bed, no distress Still having persistent subcostal pain, bilaterally Pain is 2 out of 10 when in prone position, 8 out of 10 when sitting up No shortness of breath, less coughing No fevers or chills Review of Systems Review of Systems: all noted and negative except for above Physical Exam Physical Exam: General- oriented x 3, not in distress, speaks in sentences with no effort or accessory muscle use Eyes- anicteric Neck- no JVD Lungs- clear breath sounds bilaterally, no rales/wheezes Heart- normal rate, regular rhythm; no murmurs Abdomen- normal bowel sounds, nondistended, soft, nontender Extremities- no pretibial edema, no calf tenderness Neuro- alert, oriented x 3; no gross focal neurologic deficits Skin- warm & dry Results & Data Results & Data Vital Signs (Past 12 Hours) Vital Signs Temp Pulse Resp BP Pulse Ox O2 Del Method 10/10/23 15:00 36.9 C 72 18 162/94 H 95 Room Air 10/10/23 13:23 85 18 92 Room Air 10/10/23 08:00 Room Air 10/10/23 07:11 74 20 96 Room Air 10/10/23 06:58 36.7 C 73 19 157/90 H 96 Room Air all noted and reviewed including below
[2023-10-10] MEDS: ENOXAPARIN INJ 40 MG/0.4 ML SYR SQ SCH (20:56)
[2023-10-11] MEDS: IPRATROPIUM BROMIDE NEB SOLN 0.02% 2.5 ML VIAL INH SCH ×4 (00:29→20:11)
[2023-10-11] MEDS: LEVALBUTEROL 1.25 MG/3 ML NEB NEB SCH ×4 (00:29→20:11)
[2023-10-11] MEDS: HYDROmorphone INJ 0.5 MG/0.5 ML SYR IV PRN ×5 (04:44→22:30)
[2023-10-11] MEDS: SODIUM CHLOR 7% 4 ML NEB NEB SCH ×2 (07:12→20:11)
[2023-10-11 07:36] LABS: BUN Creatinine Ratio 46.8 (10-20); Calcium 10.2 mg/dl (8.6-10.3); Creatinine Clr Calc Pharmacy 71.1 ml/min; Est GFR (African American) 102.2 ml/min; Est GFR (Non-African American) 88.2 ml/min; Potassium 5.2 mmol/L (3.5-5.1)
[2023-10-11 07:41] LABS: Basophils # (auto) 0.03 K/uL (0.00-0.20); Basophils % (auto) 0.4 %; Eosinophils # (auto) 0.19 K/uL (0.00-0.50); Eosinophils % (auto) 2.8 %; Hematocrit (blood only) 39.1 % (37.0-47.0); Hemoglobin 13.1 g/dl (12.0-16.0); Immature Granulocytes # (auto) 0.02 K/uL (0.01-0.20); Immature Granulocytes % (auto) 0.3 %; Lymphocytes # (auto) 2.06 K/uL (1.20-3.40); Lymphocytes % (auto) 30.6 %; Mean Corpuscular Hgb Conc 33.5 g/dL (32.0-36.0); Mean Corpuscular Volume 98.5 fL (80.0-100.0); Mean Platelet Volume 9.5 fL (9.4-12.4); Monocytes # (auto) 0.88 K/uL (0.11-0.59); Monocytes % (auto) 13.1 %; Neutrophils # (auto) 3.56 K/uL (1.40-6.50); Neutrophils % (auto) 52.8 %; Platelet Count 255 K/uL (130-400); RDW Coefficient of Variation 12.6 % (11.5-14.5); RDW Standard Deviation 45.3 fL (36.4-46.3); Red Blood Count 3.97 M/uL (4.20-5.40); White Blood Count 6.74 K/ul (4.8-10.8)
[2023-10-11] MEDS: PIPERACILLIN/TAZOBACTAM 4.5 GM in DEXTROSE 5% MINI-B 100 ML IV SCH ×2 (07:53→15:06)
[2023-10-11] MEDS: ACETAMINOPHEN 500 MG TAB PO SCH ×2 (07:54→16:39)
[2023-10-11] MEDS: PANTOprazole 40 MG TAB PO SCH (07:55)
[2023-10-11] MEDS: ROSUVASTATIN CALCIUM 5 MG TAB PO SCH (07:55)
[2023-10-11] MEDS: CYCLOBENZAPRINE HCL 5 MG TAB PO SCH ×2 (07:55→22:42)
[2023-10-11] MEDS: ADVANCED PROBIOTIC 1250 MG CAPSULE PO SCH (07:55)
[2023-10-11] MEDS: carvediloL 3.125 MG TAB PO SCH ×2 (07:56→22:42)
[2023-10-11] MEDS: DOXYCYCLINE HYCLATE 100 MG CAP PO SCH ×2 (07:56→22:42)
[2023-10-11] MEDS: lisinopril 10 MG TAB PO SCH (07:56)
[2023-10-11] MEDS: POLYETHYLENE (MIRALAX) 17 GM PACK PO SCH (07:57)
[2023-10-11] MEDS: NICOTINE 14 MG/24 HR PATCH TD SCH (07:57)
[2023-10-11] MEDS: POTASSIUM CHLORIDE CRTAB 20 MEQ TABCR PO SCH (08:00)
[2023-10-11] MEDS: oxyCODONE HCL IR 5 MG TAB (IMMEDIATE RELEASE) PO PRN ×2 (08:02→13:29)
[2023-10-11] MEDS: UREA (UREA-NA) 15 GM PACK PO SCH ×2 (09:54→22:44)
--- NOTE | 2023-10-11 12:20 | Nephrology Progress Note ---
Date of Service October 11, 2023 Assessment & Plan (1) Pneumonia: Plan: Patient with pneumonia being treated with Zosyn. Continue antibiotics per primary team. 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 Recent sodium of 134. Patient now has high k. Urine osmolality was 365 and urine sodium of 43. -Will continue urea 15 g twice daily -Will stop kcl -daily BMP Admission and Anticipated Discharge Date Admission Date: October 09, 2023 Subjective Seen for hyponatremia. She feels better today. Sodium uptrending to 134 Review of Systems 2 Review of Systems: All other systems were reviewed and negative except as noted in HPI Physical Exam 2 Physical Exam: General exam: Appears comfortable, no acute distress HEENT: Pupils are equal and reactive to light Neck: No JVD, neck is supple trachea is midline Respiratory system: Clear breath sounds bilaterally. Gastrointestinal: Abdomen is soft, non distended, non tender, bowel sounds are present CVS: Regular rate and rhythm. No murmurs, rubs or gallops Musculoskeletal: No joint or muscle tenderness Extremities: Non tender, no edema, peripheral pulses are present Neuro: Oriented, no tremors, no focal neurological deficits Skin: No rashes Results & Data Vital Signs (Past 12 Hours) Vital Signs Temp Pulse Pulse Resp BP Pulse Ox Pulse Ox 10/11/23 11:00 36.5 C 74 18 137/82 93 10/11/23 08:00 10/11/23 07:57 36.5 C 79 20 132/88 97 10/11/23 07:15 88 14 98 10/11/23 07:00 68 10/11/23 03:07 36.5 C 77 18 140/90 96 10/11/23 01:00 95 O2 Del Method O2 Del Method O2 Flow Rate FiO2 10/11/23 11:00 Room Air 10/11/23 08:00 Nasal Cannula 2 10/11/23 07:57 Room Air 10/11/23 07:15 Room Air 21 10/11/23 07:00 10/11/23 03:07 Room Air 10/11/23 01:00 Room Air Laboratory Results 10/11/23 06:37 10/11/23 06:37 WBC 6.74 RBC 3.97 L MCV 98.5 D MCH 33.0 MCHC 33.5 RDW Std Deviation 45.3 RDW Coeff of Latesha 12.6 Plt Count 255 MPV 9.5
[2023-10-11] MEDS: predniSONE 20 MG TAB PO SCH (15:06)
[2023-10-11] MEDS: HYDROCORTISONE 2.5% CR 30 GM TUBE EXT SCH ×2 (15:06→22:42)
--- NOTE | 2023-10-11 16:28 | Hospitalist Progress Note ---
Date of Service October 11, 2023 Assessment & Plan (1) Pneumonia: Plan: Per admitting service notes with addendum: 70-year-old female with past medical significant for hypertension, hyperlipidemia, GERD, anxiety presents with ongoing pain in the lower rib cage. Patient she smokes 1 pack daily daily for many years. She has smoker's cough. Coughing making her chest hurt more. Seems this is going for more than 6 days now. She was in the [facility] 3 days ago and was told that she has musculoskeletal pain. As it was getting worse she came here today. Coughing up whitish phlegm. Denies any fevers. No shortness of breath. Not eating. Poor appetite. Some nausea and 1 episode of vomiting. No abdominal pain. Has painful micturating. States somewhat anxious and requesting medicines to calm her. Pneumonia Chest pain more while coughing Chest x-ray showing 2.9 cm right midlung nodular density CT chest showing right lung pneumonia predominantly involving the anterior right upper/middle lobes Starting on IV Zosyn and Doxy Pain control Will monitor the response 10/10 Still having significant bilateral subcostal pain CT angiogram of the chest: No PE CT abdomen and pelvis: Unrevealing Doppler ultrasound of the lower extremity: No DVT From pleurisy? Increase oxycodone, continue as needed Dilaudid, Tylenol every 8 hours Afebrile, off oxygen supplement Continue Zosyn plus doxycycline 10/11 Still having subcostal pain Echocardiogram: No signs of acute pericarditis Start prednisone 40 mg p.o. daily Continue pain regimen Respiratory status improved Continue nebs, Zosyn plus doxycycline Hyponatremia Sodium of 125 Patient states she did not eat for last few days Gentle fluids normal saline 50 mill per hour Will check serum osmolality, urine osmolality and urine sodium levels BMP every 6 hours Slow correction Recently Lexapro dose was increased as per patient. Will hold Lexapro for now 10/11 Sodium 134 Continue urea twice daily Hypertension Continue Coreg and lisinopril GERD On omeprazole Hyperlipidemia On statin Anxiety Resume Lexapro DVT prophylaxis Lovenox Disposition Telemetry floor Full code Admission and Anticipated Discharge Date Admission Date: October 09, 2023 Subjective Follow-up for acute respiratory failure, pneumonia, etc. Seen resting in bed, in prone position Not in distress, off oxygen supplement States she still has the same subcostal chest pain Worse with sitting up, better in prone position Breathing is improving, less cough and sputum production No fevers or chills No other new symptoms Review of Systems Review of Systems: all noted and negative except for above Physical Exam Physical Exam: General- oriented x 3, not in distress, speaks in sentences with no effort or accessory muscle use Eyes- anicteric Neck- no JVD Lungs-mild rhonchi on the right, clear on the left No wheezing Heart- normal rate, regular rhythm; no murmurs Abdomen- normal bowel sounds, nondistended, soft, nontender Extremities- no pretibial edema, no calf tenderness Neuro- alert, oriented x 3; no gross focal neurologic deficits Skin- warm & dry Results & Data Results & Data Vital Signs (Past 12 Hours) Vital Signs Temp Pulse Pulse Resp BP Pulse Ox O2 Del Method 10/11/23 15:08 37.0 C 79 18 138/89 93 Room Air 10/11/23 15:00 80 10/11/23 13:36 89 12 90 Room Air 10/11/23 11:00 36.5 C 74 18 137/82 93 Room Air 10/11/23 08:00 Nasal Cannula 10/11/23 07:57 36.5 C 79 20 132/88 97 Room Air 10/11/23 07:15 88 14 98 Room Air 10/11/23 07:00 68 O2 Flow Rate FiO2 10/11/23 15:08 10/11/23 15:00 10/11/23 13:36 10/11/23 11:00 10/11/23 08:00 2 10/11/23 07:57 10/11/23 07:15 21 10/11/23 07:00 all noted and reviewed including below
[2023-10-11] MEDS: ENOXAPARIN INJ 40 MG/0.4 ML SYR SQ SCH (22:44)
[2023-10-11] MEDS: MELATONIN 3 MG TAB PO SCH (22:46)
[2023-10-12] MEDS: LEVALBUTEROL 1.25 MG/3 ML NEB NEB SCH ×2 (00:10→07:25)
[2023-10-12] MEDS: IPRATROPIUM BROMIDE NEB SOLN 0.02% 2.5 ML VIAL INH SCH ×2 (00:10→07:25)
[2023-10-12] MEDS: PIPERACILLIN/TAZOBACTAM 4.5 GM in DEXTROSE 5% MINI-B 100 ML IV SCH ×3 (00:24→15:56)
[2023-10-12] MEDS: ACETAMINOPHEN 500 MG TAB PO SCH ×3 (02:32→15:59)
[2023-10-12] MEDS: oxyCODONE HCL IR 5 MG TAB (IMMEDIATE RELEASE) PO PRN ×2 (02:33→14:12)
[2023-10-12 05:59] LABS: BUN Creatinine Ratio 55.2 (10-20); Calcium 9.8 mg/dl (8.6-10.3); Est GFR (African American) 104.5 ml/min; Est GFR (Non-African American) 90.2 ml/min; Potassium 4.1 mmol/L (3.5-5.1)
[2023-10-12] MEDS: SODIUM CHLOR 7% 4 ML NEB NEB SCH ×2 (07:25→19:40)
[2023-10-12] MEDS: HYDROmorphone INJ 0.5 MG/0.5 ML SYR IV PRN ×3 (08:00→23:01)
[2023-10-12] MEDS: CYCLOBENZAPRINE HCL 5 MG TAB PO SCH ×2 (08:05→21:00)
[2023-10-12] MEDS: DOXYCYCLINE HYCLATE 100 MG CAP PO SCH ×2 (08:06→21:00)
[2023-10-12] MEDS: UREA (UREA-NA) 15 GM PACK PO SCH ×3 (08:06→21:00)
[2023-10-12] MEDS: carvediloL 3.125 MG TAB PO SCH ×2 (08:06→21:00)
[2023-10-12] MEDS: PANTOprazole 40 MG TAB PO SCH (08:07)
[2023-10-12] MEDS: POLYETHYLENE (MIRALAX) 17 GM PACK PO SCH (08:07)
[2023-10-12] MEDS: ADVANCED PROBIOTIC 1250 MG CAPSULE PO SCH (08:07)
[2023-10-12] MEDS: ROSUVASTATIN CALCIUM 5 MG TAB PO SCH (08:07)
[2023-10-12] MEDS: lisinopril 10 MG TAB PO SCH (08:07)
[2023-10-12] MEDS: HYDROCORTISONE 2.5% CR 30 GM TUBE EXT SCH ×2 (08:08→21:01)
[2023-10-12] MEDS: NICOTINE 14 MG/24 HR PATCH TD SCH (08:08)
[2023-10-12] MEDS: predniSONE 20 MG TAB PO SCH (08:53)
[2023-10-12] MEDS ORDERED: IPRATROPIUM BROMIDE NEB SOLN 0.02% 2.5 ML VIAL INH PRN (09:52)
[2023-10-12] MEDS ORDERED: LEVALBUTEROL 1.25 MG/3 ML NEB NEB PRN (09:52)
[2023-10-12] MEDS ORDERED: hydrALAZINE HCL 20 MG/ML VIAL IV PRN (09:52)
--- NOTE | 2023-10-12 10:23 | Nephrology Progress Note ---
Date of Service October 12, 2023 Assessment & Plan (1) Pneumonia: Plan: Patient with pneumonia being treated with Zosyn. Continue antibiotics per primary team. 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 Sodium 132 today. Potassium is at goal. Urine osmolality was 365 and urine sodium of 43. -Will continue urea 15 g twice daily. Encourage patient to take the urea. -Fluid limit to 1.2 L daily. -daily BMP Admission and Anticipated Discharge Date Admission Date: October 09, 2023 Subjective Seen for hyponatremia. She feels better now. Still has some rib cage pain. She did not take diarrhea this morning per RN. Review of Systems 2 Review of Systems: All other systems were reviewed and negative except as noted in HPI Physical Exam 2 Physical Exam: General exam: Appears comfortable, no acute distress HEENT: Pupils are equal and reactive to light Neck: No JVD, neck is supple trachea is midline Respiratory system: Clear breath sounds bilaterally. Gastrointestinal: Abdomen is soft, non distended, non tender, bowel sounds are present CVS: Regular rate and rhythm. No murmurs, rubs or gallops Musculoskeletal: No joint or muscle tenderness Extremities: Non tender, no edema, peripheral pulses are present Neuro: Oriented, no tremors, no focal neurological deficits Skin: No rashes Results & Data Vital Signs (Past 12 Hours) Vital Signs Temp Pulse Pulse Resp BP Pulse Ox Pulse Ox 10/12/23 08:00 36.6 C 94 H 19 145/111 H 96 10/12/23 08:00 10/12/23 07:27 65 10/12/23 07:26 83 16 95 10/12/23 02:57 36.6 C 90 18 118/83 95 10/12/23 01:00 94 10/11/23 23:23 36.4 C L 98 H 18 157/98 H 94 10/11/23 22:27 100 H O2 Del Method O2 Del Method 10/12/23 08:00 Room Air 10/12/23 08:00 Room Air 10/12/23 07:27 10/12/23 07:26 Room Air 10/12/23 02:57 Room Air 10/12/23 01:00 Room Air 10/11/23 23:23 Room Air 10/11/23 22:27 Laboratory Results 10/12/23 05:18
--- NOTE | 2023-10-12 19:21 | Hospitalist Progress Note ---
Date of Service October 12, 2023 Assessment & Plan (1) Pneumonia: Plan: Per admitting service notes with addendum: 70-year-old female with past medical significant for hypertension, hyperlipidemia, GERD, anxiety presents with ongoing pain in the lower rib cage. Patient she smokes 1 pack daily daily for many years. She has smoker's cough. Coughing making her chest hurt more. Seems this is going for more than 6 days now. She was in the [facility] 3 days ago and was told that she has musculoskeletal pain. As it was getting worse she came here today. Coughing up whitish phlegm. Denies any fevers. No shortness of breath. Not eating. Poor appetite. Some nausea and 1 episode of vomiting. No abdominal pain. Has painful micturating. States somewhat anxious and requesting medicines to calm her. Pneumonia Chest pain more while coughing Chest x-ray showing 2.9 cm right midlung nodular density CT chest showing right lung pneumonia predominantly involving the anterior right upper/middle lobes Starting on IV Zosyn and Doxy Pain control Will monitor the response 10/10 Still having significant bilateral subcostal pain CT angiogram of the chest: No PE CT abdomen and pelvis: Unrevealing Doppler ultrasound of the lower extremity: No DVT From pleurisy? Increase oxycodone, continue as needed Dilaudid, Tylenol every 8 hours Afebrile, off oxygen supplement Continue Zosyn plus doxycycline 10/11 Still having subcostal pain Echocardiogram: No signs of acute pericarditis Start prednisone 40 mg p.o. daily Continue pain regimen Respiratory status improved Continue nebs, Zosyn plus doxycycline 10/12 Pain seems to be improving gradually Continue prednisone 40 mg daily Continue pain medication regimen Chest binder applied today Hyponatremia Sodium of 125 Patient states she did not eat for last few days Gentle fluids normal saline 50 mill per hour Will check serum osmolality, urine osmolality and urine sodium levels BMP every 6 hours Slow correction Recently Lexapro dose was increased as per patient. Will hold Lexapro for now 10/12 Sodium 132 Continue urea twice daily Appreciate neurology service recommendations Hypertension Continue Coreg and lisinopril GERD On omeprazole Hyperlipidemia On statin Anxiety Resume Lexapro DVT prophylaxis Lovenox Disposition Telemetry floor Full code Admission and Anticipated Discharge Date Admission Date: October 09, 2023 Subjective Follow-up for pneumonia, chest pain, etc. Seen resting in bed, in prone position, not in distress, on room air Patient able to sit up at the edge of the bed, seems to tolerate movement better States she feels somewhat improved but still has significant subcostal pain Breathing is better, less cough No other new symptom Review of Systems Review of Systems: all noted and negative except for above Physical Exam Physical Exam: General- oriented x 3, not in distress, speaks in sentences with no effort or accessory muscle use Eyes- anicteric Neck- no JVD Lungs-mild rhonchi on the right, clear on the left No wheeze Heart- normal rate, regular rhythm; no murmurs Abdomen- normal bowel sounds, nondistended, soft, nontender Extremities- no pretibial edema, no calf tenderness Neuro- alert, oriented x 3; no gross focal neurologic deficits Skin- warm & dry Results & Data Results & Data Vital Signs (Past 12 Hours) Vital Signs Temp Pulse Pulse Resp BP Pulse Ox O2 Del Method 10/12/23 15:46 80 10/12/23 14:14 37.2 C 88 20 129/78 95 Room Air 10/12/23 12:16 36.7 C 98 H 18 151/93 H 96 Room Air 10/12/23 08:00 36.6 C 94 H 19 145/111 H 96 Room Air 10/12/23 08:00 Room Air 10/12/23 07:27 65 10/12/23 07:26 83 16 95 Room Air all noted and reviewed including below
[2023-10-12] MEDS: MELATONIN 3 MG TAB PO SCH (21:00)
[2023-10-12] MEDS: ENOXAPARIN INJ 40 MG/0.4 ML SYR SQ SCH (21:00)
[2023-10-13] MEDS: PIPERACILLIN/TAZOBACTAM 4.5 GM in DEXTROSE 5% MINI-B 100 ML IV SCH ×3 (00:18→16:06)
[2023-10-13] MEDS: HYDROmorphone INJ 0.5 MG/0.5 ML SYR IV PRN ×2 (03:47→08:19)
[2023-10-13] MEDS: ACETAMINOPHEN 500 MG TAB PO SCH ×3 (03:48→16:07)
[2023-10-13 07:30] LABS: Calcium 9.9 mg/dl (8.6-10.3); Creatinine Clr Calc Pharmacy 66.8 ml/min; Est GFR (African American) 100.2 ml/min; Est GFR (Non-African American) 86.4 ml/min; Potassium 3.8 mmol/L (3.5-5.1)
[2023-10-13] MEDS: DOXYCYCLINE HYCLATE 100 MG CAP PO SCH ×2 (08:10→20:16)
[2023-10-13] MEDS: lisinopril 10 MG TAB PO SCH (08:10)
[2023-10-13] MEDS: predniSONE 20 MG TAB PO SCH (08:10)
[2023-10-13] MEDS: ROSUVASTATIN CALCIUM 5 MG TAB PO SCH (08:10)
[2023-10-13] MEDS: UREA (UREA-NA) 15 GM PACK PO SCH ×2 (08:10→20:17)
[2023-10-13] MEDS: POLYETHYLENE (MIRALAX) 17 GM PACK PO SCH (08:11)
[2023-10-13] MEDS: NICOTINE 14 MG/24 HR PATCH TD SCH (08:11)
[2023-10-13] MEDS: carvediloL 3.125 MG TAB PO SCH ×2 (08:11→20:16)
[2023-10-13] MEDS: ADVANCED PROBIOTIC 1250 MG CAPSULE PO SCH (08:11)
[2023-10-13] MEDS: CYCLOBENZAPRINE HCL 5 MG TAB PO SCH (08:11)
[2023-10-13] MEDS: PANTOprazole 40 MG TAB PO SCH (08:11)
[2023-10-13] MEDS: HYDROCORTISONE 2.5% CR 30 GM TUBE EXT SCH ×2 (08:12→20:17)
[2023-10-13] MEDS: POTASSIUM CHLORIDE CRTAB 20 MEQ TABCR PO SCH (11:00)
[2023-10-13] MEDS: oxyCODONE HCL IR 5 MG TAB (IMMEDIATE RELEASE) PO PRN (11:07)
--- NOTE | 2023-10-13 11:50 | Nephrology Progress Note ---
Date of Service October 13, 2023 Assessment & Plan (1) Pneumonia: Plan: Patient with pneumonia being treated with Zosyn. Continue antibiotics per primary team. 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 Sodium 133 today. Potassium is at goal. Urine osmolality was 365 and urine sodium of 43. -Will continue urea 15 g twice daily. Encourage patient to take the urea. -Fluid limit to 1.2 L daily. -Will add potassium 20 mill equivalents daily. -daily BMP -From renal standpoint patient can be discharged with adequate pain control Admission and Anticipated Discharge Date Admission Date: October 09, 2023 Subjective Seen for hyponatremia. She feels better today. Main complaint is intermittent rib cage pain Review of Systems 2 Review of Systems: All other systems were reviewed and negative except as noted in HPI Physical Exam 2 Physical Exam: General exam: Appears comfortable, no acute distress HEENT: Pupils are equal and reactive to light Neck: No JVD, neck is supple trachea is midline Respiratory system: Clear breath sounds bilaterally. Gastrointestinal: Abdomen is soft, non distended, non tender, bowel sounds are present CVS: Regular rate and rhythm. No murmurs, rubs or gallops Musculoskeletal: No joint or muscle tenderness Extremities: Non tender, no edema, peripheral pulses are present Neuro: Oriented, no tremors, no focal neurological deficits Skin: No rashes Results & Data Vital Signs (Past 12 Hours) Vital Signs Temp Pulse Pulse Resp BP Pulse Ox Pulse Ox 10/13/23 11:01 36.7 C 87 18 132/80 91 10/13/23 08:00 79 10/13/23 07:12 36.6 C 77 18 116/76 97 10/13/23 03:03 36.5 C 90 18 108/76 94 10/13/23 01:00 94 O2 Del Method O2 Del Method 10/13/23 11:01 Room Air 10/13/23 08:00 10/13/23 07:12 Room Air 10/13/23 03:03 Room Air 10/13/23 01:00 Room Air Laboratory Results 10/13/23 06:19
[2023-10-13] MEDS: traMADol HCL 50 MG TABLET PO SCH ×2 (15:10→20:12)
--- NOTE | 2023-10-13 19:32 | Hospitalist Progress Note ---
Date of Service October 13, 2023 delayed entry date of service noted above Assessment & Plan (1) Pneumonia: Plan: Per admitting service notes with addendum: 70-year-old female with past medical significant for hypertension, hyperlipidemia, GERD, anxiety presents with ongoing pain in the lower rib cage. Patient she smokes 1 pack daily daily for many years. She has smoker's cough. Coughing making her chest hurt more. Seems this is going for more than 6 days now. She was in the [facility] 3 days ago and was told that she has musculoskeletal pain. As it was getting worse she came here today. Coughing up whitish phlegm. Denies any fevers. No shortness of breath. Not eating. Poor appetite. Some nausea and 1 episode of vomiting. No abdominal pain. Has painful micturating. States somewhat anxious and requesting medicines to calm her. Pneumonia Chest pain more while coughing Chest x-ray showing 2.9 cm right midlung nodular density CT chest showing right lung pneumonia predominantly involving the anterior right upper/middle lobes Starting on IV Zosyn and Doxy Pain control Will monitor the response 10/10 Still having significant bilateral subcostal pain CT angiogram of the chest: No PE CT abdomen and pelvis: Unrevealing Doppler ultrasound of the lower extremity: No DVT From pleurisy? Increase oxycodone, continue as needed Dilaudid, Tylenol every 8 hours Afebrile, off oxygen supplement Continue Zosyn plus doxycycline 10/11 Still having subcostal pain Echocardiogram: No signs of acute pericarditis Start prednisone 40 mg p.o. daily Continue pain regimen Respiratory status improved Continue nebs, Zosyn plus doxycycline 10/12 Pain seems to be improving gradually Continue prednisone 40 mg daily Continue pain medication regimen Chest binder applied today 10/13 Transition from IV to oral Dilaudid Continue prednisone Monitor response Hyponatremia Sodium of 125 Patient states she did not eat for last few days Gentle fluids normal saline 50 mill per hour Will check serum osmolality, urine osmolality and urine sodium levels BMP every 6 hours Slow correction Recently Lexapro dose was increased as per patient. Will hold Lexapro for now 10/13 Sodium 133 Continue urea twice daily Appreciate neurology service recommendations Hypertension Continue Coreg and lisinopril GERD On omeprazole Hyperlipidemia On statin Anxiety Resume Lexapro DVT prophylaxis Lovenox Disposition Telemetry floor Full code Admission and Anticipated Discharge Date Admission Date: October 09, 2023 Subjective Follow-up for pneumonia, chest pain, etc Seen resting in bed, comfortable, not in distress Still having lateral chest pain but seems to be somewhat improved Okay to transition to oral Dilaudid Breathing is okay No other new symptoms Review of Systems Review of Systems: all noted and negative except for above Physical Exam Physical Exam: General- oriented x 3, not in distress, speaks in sentences with no effort or accessory muscle use Eyes- anicteric Neck- no JVD Lungs- clear breath sounds bilaterally, no crackles or wheezing Heart- normal rate, regular rhythm; no murmurs Abdomen- normal bowel sounds, nondistended, soft, nontender Extremities- no pretibial edema, no calf tenderness Neuro- alert, oriented x 3; no gross focal neurologic deficits Skin- warm & dry Results & Data Results & Data Vital Signs (Past 12 Hours) Vital Signs Temp Pulse Pulse Resp BP Pulse Ox O2 Del Method 10/13/23 16:07 37.0 C 82 18 119/70 98 Room Air 10/13/23 15:36 91 H 10/13/23 11:01 36.7 C 87 18 132/80 91 Room Air 10/13/23 08:00 79 all noted and reviewed including below
[2023-10-13] MEDS: ENOXAPARIN INJ 40 MG/0.4 ML SYR SQ SCH (20:15)
[2023-10-13] MEDS: MELATONIN 3 MG TAB PO SCH (20:17)
[2023-10-13] MEDS: HYDROmorphone HCL 2 MG TAB PO PRN (21:31)
[2023-10-14] MEDS: PIPERACILLIN/TAZOBACTAM 4.5 GM in DEXTROSE 5% MINI-B 100 ML IV SCH ×3 (00:26→16:26)
[2023-10-14] MEDS: ACETAMINOPHEN 500 MG TAB PO SCH ×3 (00:26→16:26)
[2023-10-14] MEDS: traMADol HCL 50 MG TABLET PO SCH ×2 (03:28→08:05)
[2023-10-14] MEDS: HYDROmorphone HCL 2 MG TAB PO PRN (07:17)
[2023-10-14 07:41] LABS: Calcium 9.6 mg/dl (8.6-10.3); Creatinine Clr Calc Pharmacy 71.1 ml/min; Est GFR (African American) 102.2 ml/min; Est GFR (Non-African American) 88.2 ml/min; Potassium 3.4 mmol/L (3.5-5.1)
[2023-10-14] MEDS: UREA (UREA-NA) 15 GM PACK PO SCH ×2 (08:03→20:44)
[2023-10-14] MEDS: carvediloL 3.125 MG TAB PO SCH ×2 (08:03→20:45)
[2023-10-14] MEDS: DOXYCYCLINE HYCLATE 100 MG CAP PO SCH ×2 (08:04→20:47)
[2023-10-14] MEDS: ADVANCED PROBIOTIC 1250 MG CAPSULE PO SCH (08:04)
[2023-10-14] MEDS: lisinopril 10 MG TAB PO SCH (08:04)
[2023-10-14] MEDS: predniSONE 20 MG TAB PO SCH (08:04)
[2023-10-14] MEDS: ROSUVASTATIN CALCIUM 5 MG TAB PO SCH (08:04)
[2023-10-14] MEDS: PANTOprazole 40 MG TAB PO SCH (08:04)
[2023-10-14] MEDS: POTASSIUM CHLORIDE CRTAB 20 MEQ TABCR PO SCH (08:04)
[2023-10-14] MEDS: HYDROCORTISONE 2.5% CR 30 GM TUBE EXT SCH ×2 (08:05→20:48)
[2023-10-14] MEDS: POLYETHYLENE (MIRALAX) 17 GM PACK PO SCH (08:05)
[2023-10-14] MEDS: NICOTINE 14 MG/24 HR PATCH TD SCH (08:05)
[2023-10-14] MEDS ORDERED: traMADol HCL 50 MG TABLET PO PRN (10:22)
[2023-10-14] MEDS: tiZANidine HCL 4 MG TABLET PO SCH ×2 (13:28→20:46)
[2023-10-14] MEDS: GABAPENTIN 100 MG CAP PO SCH ×2 (13:28→20:48)
--- NOTE | 2023-10-14 19:18 | Hospitalist Progress Note ---
Date of Service October 14, 2023 Assessment & Plan (1) Pneumonia: Plan: Per admitting service notes with addendum: 70-year-old female with past medical significant for hypertension, hyperlipidemia, GERD, anxiety presents with ongoing pain in the lower rib cage. Patient she smokes 1 pack daily daily for many years. She has smoker's cough. Coughing making her chest hurt more. Seems this is going for more than 6 days now. She was in the [facility] 3 days ago and was told that she has musculoskeletal pain. As it was getting worse she came here today. Coughing up whitish phlegm. Denies any fevers. No shortness of breath. Not eating. Poor appetite. Some nausea and 1 episode of vomiting. No abdominal pain. Has painful micturating. States somewhat anxious and requesting medicines to calm her. Pneumonia Chest pain more while coughing Chest x-ray showing 2.9 cm right midlung nodular density CT chest showing right lung pneumonia predominantly involving the anterior right upper/middle lobes Starting on IV Zosyn and Doxy Pain control Will monitor the response 10/10 Still having significant bilateral subcostal pain CT angiogram of the chest: No PE CT abdomen and pelvis: Unrevealing Doppler ultrasound of the lower extremity: No DVT From pleurisy? Increase oxycodone, continue as needed Dilaudid, Tylenol every 8 hours Afebrile, off oxygen supplement Continue Zosyn plus doxycycline 10/11 Still having subcostal pain Echocardiogram: No signs of acute pericarditis Start prednisone 40 mg p.o. daily Continue pain regimen Respiratory status improved Continue nebs, Zosyn plus doxycycline 10/12 Pain seems to be improving gradually Continue prednisone 40 mg daily Continue pain medication regimen Chest binder applied today 10/13 Transition from IV to oral Dilaudid Continue prednisone Monitor response 10/14 Patient still having significant pain Most likely musculoskeletal etiology with possible pleurisy, neuropathic component? Change Flexeril to tizanidine 2 mg 3 times daily Add gabapentin 100 mg twice daily Prednisone 40 mg daily At this point, we will consult pain management service for further recommendations Hyponatremia Sodium of 125 Patient states she did not eat for last few days Gentle fluids normal saline 50 mill per hour Will check serum osmolality, urine osmolality and urine sodium levels BMP every 6 hours Slow correction Recently Lexapro dose was increased as per patient. Will hold Lexapro for now 10/14 Sodium 136 Continue urea twice daily Appreciate neurology service recommendations Hypertension Continue Coreg and lisinopril GERD On omeprazole Hyperlipidemia On statin Anxiety Resume Lexapro DVT prophylaxis Lovenox Disposition Telemetry floor Full code Admission and Anticipated Discharge Date Admission Date: October 09, 2023 Subjective Follow-up for pneumonia, chest pain Seen resting in bed, not in distress Still reporting bilateral chest pain, worse with movement Patient adds that this started after lifting a heavy chair at home Breathing is fine No cough No other new symptoms Review of Systems Review of Systems: all noted and negative except for above Physical Exam Physical Exam: General- oriented x 3, not in distress, speaks in sentences with no effort or accessory muscle use Eyes- anicteric Neck- no JVD Lungs- clear breath sounds bilaterally, no crackles or wheezing Heart- normal rate, regular rhythm; no murmurs Abdomen- normal bowel sounds, nondistended, soft, no tenderness Extremities- no pretibial edema, no calf tenderness Neuro- alert, oriented x 3; no gross focal neurologic deficits Skin- warm & dry Results & Data Results & Data Vital Signs (Past 12 Hours) Vital Signs Temp Pulse Pulse Pulse Resp BP Pulse Ox 10/14/23 15:02 36.9 C 95 H 17 148/98 H 97 10/14/23 14:58 82 10/14/23 10:43 36.9 C 84 18 132/80 95 10/14/23 07:20 79 10/14/23 07:20 O2 Del Method 10/14/23 15:02 Room Air 10/14/23 14:58 10/14/23 10:43 Room Air 10/14/23 07:20 10/14/23 07:20 Room Air all noted and reviewed including below
[2023-10-14] MEDS: oxyCODONE HCL IR 5 MG TAB (IMMEDIATE RELEASE) PO PRN (20:43)
[2023-10-14] MEDS: MELATONIN 3 MG TAB PO SCH (20:47)
[2023-10-14] MEDS: ENOXAPARIN INJ 40 MG/0.4 ML SYR SQ SCH (20:49)
[2023-10-15] MEDS: PIPERACILLIN/TAZOBACTAM 4.5 GM in DEXTROSE 5% MINI-B 100 ML IV SCH ×3 (00:07→15:52)
[2023-10-15] MEDS: ACETAMINOPHEN 500 MG TAB PO SCH ×3 (00:10→15:52)
[2023-10-15] MEDS: HYDROmorphone HCL 2 MG TAB PO PRN ×2 (04:10→11:49)
[2023-10-15 07:26] LABS: BUN Creatinine Ratio 38.1 (10-20); Calcium 10.4 mg/dl (8.6-10.3); Est GFR (African American) 101.7 ml/min; Est GFR (Non-African American) 87.7 ml/min; Potassium 4.1 mmol/L (3.5-5.1)
[2023-10-15] MEDS: DOXYCYCLINE HYCLATE 100 MG CAP PO SCH ×2 (08:12→20:33)
[2023-10-15] MEDS: HYDROCORTISONE 2.5% CR 30 GM TUBE EXT SCH ×2 (08:12→20:33)
[2023-10-15] MEDS: lisinopril 10 MG TAB PO SCH (08:13)
[2023-10-15] MEDS: ROSUVASTATIN CALCIUM 5 MG TAB PO SCH (08:13)
[2023-10-15] MEDS: GABAPENTIN 100 MG CAP PO SCH ×3 (08:13→20:33)
[2023-10-15] MEDS: PANTOprazole 40 MG TAB PO SCH (08:13)
[2023-10-15] MEDS: predniSONE 20 MG TAB PO SCH (08:13)
[2023-10-15] MEDS: ADVANCED PROBIOTIC 1250 MG CAPSULE PO SCH (08:13)
[2023-10-15] MEDS: NICOTINE 14 MG/24 HR PATCH TD SCH (08:14)
[2023-10-15] MEDS: UREA (UREA-NA) 15 GM PACK PO SCH ×3 (08:14→20:34)
[2023-10-15] MEDS: tiZANidine HCL 4 MG TABLET PO SCH ×3 (08:14→20:32)
[2023-10-15] MEDS: POTASSIUM CHLORIDE CRTAB 20 MEQ TABCR PO SCH (08:15)
[2023-10-15] MEDS: POLYETHYLENE (MIRALAX) 17 GM PACK PO SCH (08:16)
[2023-10-15] MEDS: carvediloL 3.125 MG TAB PO SCH ×2 (08:16→20:32)
--- NOTE | 2023-10-15 09:31 | Pain Management Consultation ---
Date of Consultation October 15, 2023 Assessment & Plan (1) Pneumonia: (2) Pleurisy: Plan 1. As the patient's pain is diffuse and felt to be related to pleurisy/pneumonia, there is no indication for interventional pain management procedure. 2. Symptoms and exam are not consistent with costochondritis or intercostal neuralgia. 3. No changes are made to current pain related medication regimen. 4. Encourage smoking cessation. Thank you for this consultation. Will follow peripherally to check on patient progress. History of Present Illness Attending Physician: Claude Franco MD History of Present Illness Patient is a 73-year-old female that presented to the [facility] ED on 10/08/2023 complaining of bilateral chest pain and bilateral upper back pain. At that time, she had apparently been having the symptoms for about 6 days. She did go to the [facility] emergency department closer to when the symptoms started, and she was told that she was having muscular pains. She was discharged home from the ED, and then subsequently was seen here in the ER. Her pain worsened over the 48 hours or so prior to her arrival in the ED. She was saying that naproxen did not help her pain at all. Most any movements were causing her pain to be worse. The pain was described to be quite diffuse in both the anterior and posterior chest, which she noted to be a pressure and sharp sensation. She was not noting any particular cough or fever at home, but has noted a cough more recently. Patient does have a history of smoking 1 pack of cigarettes daily for many years. Patient did have a chest x-ray showing a right midlung nodular density, and a CT scan demonstrating right lung pneumonia predominantly involving the anterior right upper and middle lobes. She is on IV Zosyn and doxycycline. Patient has been wearing a binder to her lower thorax/upper abdomen region. Today, the patient is noting the majority of her pain to be subcostal and substernal at the inferior margins of her rib cage, and also "deep" into her chest. And then she also has pain posteriorly at the base of the rib cage in her thoracic region. She describes the pain as being quite diffuse. She says she was not really having a cough for any lengthy timeframe, but has had one more recently. She denies any recent trauma or falls. 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 She inquires as to if some supplemental oxygen may help her condition. Case discussed with Dr. Afia Lund. Allergies Allergy/AdvReac Type Severity Reaction Status Date / Time ibuprofen [From Motrin] AdvReac Vomiting Verified 10/08/23 23:53 Home Medications Medication Instructions Recorded Confirmed Type carvedilol 3.125 mg tablet 3.125 mg PO BID 10/09/23 10/09/23 History escitalopram oxalate 20 mg tablet 20 mg PO DAILY 10/09/23 10/09/23 History lisinopril 10 mg tablet 10 mg PO DAILY 10/09/23 10/09/23 History omeprazole 20 mg capsule,delayed 20 mg PO DAILY 10/09/23 10/09/23 History release rosuvastatin 5 mg tablet 5 mg PO DAILY 10/09/23 10/09/23 History Patient History Medical History (Updated 10/15/23 @ 09:30 by Itz Fong PA-C) Pleurisy Social History Smoking Status: Heavy tobacco smoker Tobacco Type: Cigarettes Hx Alcohol Use: Yes Alcohol type: beer Hx Substance Use: No Preferred Language: Sammarinese Communication Ability: Effective Financial Management Required: No Beliefs That Will Affect Care: None Current Living Situation: Alone Feels Safe at Home: Yes Assistive Devices: Denture - Upper, Denture - Lower and Glasses Physical Exam Physical Exam: GENERAL: Speech and cognition is intact. Mood and affect is appropriate. In no acute distress. HEAD: Normocephalic; atraumatic. NECK: Trachea is midline; no TTP; no cervical lymphadenopathy. CHEST: Diminished chest respiration and excursion.+ Exquisite tenderness to anterior costal margins and substernal/xiphoid process region. Nontender over axillary ribs. BACK: No midline or facet tenderness. + Exquisite tenderness to posterior thoracic rib cage bilaterally, extending to the costal margins caudally. NEURO: CN II-XII grossly intact with no focal deficits noted. SKIN: No lesions, erythema, or rashes noted. Results (Pain Clinic) Diagnostic Review CT Findings: CT OF THE ABDOMEN AND PELVIS WITH CONTRAST CLINICAL HISTORY: pain, bilateral subcostal region COMPARISON STUDY: KUB October 09, 2023. TECHNIQUE: Following IV administration of 115 mL of Optiray, axial images of the abdomen and pelvis were obtained from the lung bases to the proximal femurs. Images were reviewed in the axial, sagittal, and coronal planes. IV contrast was administered without complication. Automated exposure control was utilized for the study. A dose lowering technique was utilized adhering to the principles of ALARA. CT DOSE: 1506.3 mGy.cm FINDINGS: Please note that the chest CT will be reported separately. No pneumatosis, free air or portal venous gas is present. There are no hepatic lesions. Hypodensity within the lateral segment of the liver favors focal fat. The spleen, adrenal glands and left kidney are unremarkable. There is moderate right renal atrophy. The pancreas is unremarkable. No biliary or pancreatic ductal dilatation is present. The gallbladder is mildly distended. There is no pericholecystic infiltration. The right colon is mildly distended. There is no evidence for a bowel obstruction. Moderate amount of poorly formed stool within the right colon is present. There is no ascites or lymphadenopathy. No fluid collections are present. Moderate aortoiliac atherosclerotic plaque is present. IMPRESSION: 1. No acute process within the abdomen or pelvis. 2. Mildly dilated right colon with moderate amount of poorly formed stool. No evidence for a bowel obstruction. 3. Moderate right renal atrophy. 4. Mildly distended gallbladder. No pericholecystic infiltration to strongly suggest acute cholecystitis. ACT 112: Negative or not required by law. Electronically signed by: Sae Carrizales M.D. 10/10/2023 5:11 PM Dictated: 10/10/231704 Transcribed: 10/10/[address] ANGIOGRAPHY OF THE CHEST, PULMONARY EMBOLUS PROTOCOL CLINICAL HISTORY: Chest pain. Evaluate for deep venous thrombus. COMPARISON STUDY: Chest CT October 08, 2023. Nuclear medicine perfusion study October 10, 2023. TECHNIQUE: Following IV administration of 115 mL of Optiray, helical axial images of the chest were obtained utilizing the pulmonary embolus protocol. Maximal intensity projections and sagittal and coronal reformats were viewed on an independent 3D workstation. IV contrast was administered without complication. Automated exposure control was utilized for the study. A dose lowering technique was utilized adhering to the principles of ALARA. FINDINGS: No pulmonary emboli are identified. There is moderate cardiomegaly and coronary artery calcification. No pneumothorax or pleural effusion is present. Consolidation within the anterior segment of the right upper lobe has progressed since CT of October 08, 2023, now measuring 5.8 x 2.5 cm. This corresponds to the finding on perfusion study. There is mild emphysema. There is no cavitation. T7 compression fracture is chronic. Abdomen and pelvis CT will be reported separately. IMPRESSION: No pulmonary emboli. The perfusion defect on nuclear medicine study performed earlier today was due to right upper lobe pneumonia which has significantly progressed since CT of October 08, 2023. A follow-up chest CT in 3 months to ensure resolution is recommended. ACT 112: Negative or not required by law. Electronically signed by: Sae Carrizales M.D. 10/10/2023 5:05 PM Dictated: 10/10/231653 Transcribed: 10/10/231653 Other Findings: NUCLEAR PULMONARY PERFUSION SCAN CLINICAL HISTORY: Atypical chest pain. COMPARISON STUDY: Chest x-ray and chest CT dated 10/08/2023. TECHNIQUE: Nuclear perfusion images of both lungs were obtained following the IV administration of 5.5 mCi of technetium 99m MAA. Ventilation and perfusion images were acquired in the anterior, posterior, and oblique projections. FINDINGS: Chest x-ray and chest CT scans performed 10/08/2023 show emphysematous change. Right upper lobe airspace consolidation is typical for pneumonia. Perfusion of the lungs is heterogeneous. A large perfusion defect is suggested in the right midlung. No perfusion defects are suggested in the left lung. IMPRESSION: There is a large apparent perfusion defect in the right midlung. No large pulmonary embolus was seen by chest CT on 10/08/2023 and this is of indeterminate significance. Correlation with a CT angiogram of the chest is recommended for further assessment as a pulmonary embolus is not entirely excluded. ACT 112: Negative or not required by law. Electronically signed by: Chuckie Crespo M.D. 10/10/2023 11:13 AM Dictated: 10/10/23 1110 Transcribed: 10/10/231109
--- NOTE | 2023-10-15 18:40 | Hospitalist Progress Note ---
Date of Service October 15, 2023 Assessment & Plan (1) Pneumonia: Plan: Per admitting service notes with addendum: 70-year-old female with past medical significant for hypertension, hyperlipidemia, GERD, anxiety presents with ongoing pain in the lower rib cage. Patient she smokes 1 pack daily daily for many years. She has smoker's cough. Coughing making her chest hurt more. Seems this is going for more than 6 days now. She was in the [facility] 3 days ago and was told that she has musculoskeletal pain. As it was getting worse she came here today. Coughing up whitish phlegm. Denies any fevers. No shortness of breath. Not eating. Poor appetite. Some nausea and 1 episode of vomiting. No abdominal pain. Has painful micturating. States somewhat anxious and requesting medicines to calm her. RIGHT UPPER LOBE PNEUMONIA Chest pain more while coughing Chest x-ray showing 2.9 cm right midlung nodular density CT chest showing right lung pneumonia predominantly involving the anterior right upper/middle lobes Starting on IV Zosyn and Doxy Pain control Will monitor the response Pneumonia improving slightly Weaned off oxygen Currently on Zosyn plus doxycycline day number 7 out of [address] chest in 3 months to ensure resolution of right upper lobe opacities During admission, patient had severe, persistent subcostal bilateral pain, worse with movement Likely secondary to pleurisy, musculoskeletal etiology Workup negative for PE, abdomen pelvis abnormalities, pericarditis, DVT Pain medications titrated Currently on prednisone 40 mg daily day #5, taper gradually On oral Dilaudid, oxycodone, tramadol as needed On gabapentin 100 mg 3 times daily, Zanaflex 2 mg 3 times daily Pain management service consulted: Recommend to continue above regimen Will order PT and OT evaluation. HYPONATREMIA Sodium of 125 Patient states she did not eat for last few days Gentle fluids normal saline 50 mill per hour Will check serum osmolality, urine osmolality and urine sodium levels BMP every 6 hours Slow correction Recently Lexapro dose was increased as per patient. Will hold Lexapro for now 1/2 Sodium 138 Continue urea twice daily Appreciate nephrology service recommendations HYPERTENSION Continue Coreg and lisinopril GERD On omeprazole Hyperlipidemia On statin Anxiety Continue Lexapro DVT prophylaxis Lovenox Disposition Lives at home Anticipate discharge to home medically stable PT OT evaluation ordered Admission and Anticipated Discharge Date Admission Date: October 09, 2023 Subjective Follow-up for pneumonia, bilateral subcostal/chest pain, etc. Sitting up in bed comfortable, not in distress States she was having significant pain again starting at 3 AM Seems to have improved with as needed pain medications and has subsided since No shortness of breath, fevers or chills, cough No other new symptom Review of Systems Review of Systems: all noted and negative except for above Physical Exam Physical Exam: General- oriented x 3, not in distress, speaks in sentences with no effort or accessory muscle use Eyes- anicteric Neck- no JVD Lungs- clear breath sounds bilaterally, no rales/wheezes Heart- normal rate, regular rhythm; no murmurs Abdomen- normal bowel sounds, nondistended, soft, nontender Extremities- no pretibial edema, no calf tenderness Neuro- alert, oriented x 3; no gross focal neurologic deficits Skin- warm & dry Results & Data Results & Data Vital Signs (Past 12 Hours) Vital Signs Temp Pulse Pulse Resp BP Pulse Ox O2 Del Method 10/15/23 15:45 86 10/15/23 15:04 36.8 C 62 18 116/85 93 Room Air 10/15/23 10:59 36.8 C 78 18 109/71 96 Room Air 10/15/23 08:33 105 H 10/15/23 08:33 37.3 C 97 H 18 133/85 97 Room Air 10/15/23 07:13 36.7 C 78 18 152/97 H 96 Room Air all noted and reviewed including below
[2023-10-15] MEDS ORDERED: traMADol HCL 50 MG TABLET PO PRN (18:41)
[2023-10-15] MEDS: MELATONIN 3 MG TAB PO SCH (20:33)
[2023-10-15] MEDS: ENOXAPARIN INJ 40 MG/0.4 ML SYR SQ SCH (20:41)
--- NOTE | 2023-10-15 21:12 | Nephrology Progress Note ---
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 Sodium 138 today. Potassium is at goal. Urine osmolality was 365 and urine sodium of 43. -Will continue urea 15 g twice daily. Encourage patient to take the urea. -Fluid limit to 1.2 L daily. -Will continue potassium 20 mill equivalents daily. -daily BMP -From renal standpoint patient can be discharged with adequate pain control nephro d/c recommendations >>needs at least 2 wk supply of urea 15 gm bid > reviewed w/ pt permission w/ her sister -pt looking for new PCP she tells me > defer to d/c planners, hospitalist to evaluate -needs hospital d/c appt w/ me in [facility] 2-4 wks after d/c w/ bmp, ur and ser osms, rd urine sodium to be done about 3 days before that visit; orders to be placed by neph RN (2) Pneumonia: Plan: Patient with pneumonia being treated with Zosyn. Continue antibiotics per primary team. Admission and Anticipated Discharge Date Admission Date: October 09, 2023 Subjective state she feels improved though still weak and poor po. has jags of pain that move around her torso - pain mgt to eval pt today. N controlled. sister is at bedside and mentions pt's heavy EtOH use > once. Review of Systems 2 Review of Systems: All systems reviewed & are unremarkable except as noted in Subjective Physical Exam 2 Constitutional: well developed (no acute distress), + frail appearing, cooperative and + malnourished Eyes: EOM intact bilaterally ENMT: Ears: no external ear abnormality Nose: no external nose abnormality Mouth: + dry oral mucous membranes Neck: no nuchal rigidity Respiratory: normal respiratory effort Auscultation: + diminished lung sounds some point tenderness posterior abdomen post clavicular line Cardiovascular: RRR, no murmur, no edema Gastrointestinal (Abdomen): Inspection/Auscultation: normal bowel sounds P ercussion/Palpation: abdomen soft; abdomen nontender Musculoskeletal: Extremities: strength 5/5 throughout Skin: no rashes, warm and dry Neurologic: castro, fluent speech, no tremor Results & Data Vital Signs (Past 12 Hours) Vital Signs Temp Pulse Pulse Resp BP Pulse Ox O2 Del Method 10/15/23 19:51 Room Air 10/15/23 19:00 36.8 C 91 H 18 141/92 H 96 Room Air 10/15/23 15:45 86 10/15/23 15:04 36.8 C 62 18 116/85 93 Room Air 10/15/23 10:59 36.8 C 78 18 109/71 96 Room Air Laboratory Results 10/11/23 06:37 10/15/23 06:36
[2023-10-16] MEDS: PIPERACILLIN/TAZOBACTAM 4.5 GM in DEXTROSE 5% MINI-B 100 ML IV SCH (00:40)
[2023-10-16] MEDS: ACETAMINOPHEN 500 MG TAB PO SCH ×3 (00:40→16:34)
[2023-10-16] MEDS: HYDROmorphone HCL 2 MG TAB PO PRN ×3 (01:31→23:05)
[2023-10-16 07:24] LABS: Calcium 10.1 mg/dl (8.6-10.3); Creatinine Clr Calc Pharmacy 70.3 ml/min; Est GFR (African American) 101.7 ml/min; Est GFR (Non-African American) 87.7 ml/min; Potassium 3.6 mmol/L (3.5-5.1)
[2023-10-16] MEDS: oxyCODONE HCL IR 5 MG TAB (IMMEDIATE RELEASE) PO PRN (08:30)
[2023-10-16] MEDS: POLYETHYLENE (MIRALAX) 17 GM PACK PO SCH (08:39)
[2023-10-16] MEDS: NICOTINE 14 MG/24 HR PATCH TD SCH (08:39)
[2023-10-16] MEDS: UREA (UREA-NA) 15 GM PACK PO SCH (08:39)
[2023-10-16] MEDS: PANTOprazole 40 MG TAB PO SCH (08:39)
[2023-10-16] MEDS: HYDROCORTISONE 2.5% CR 30 GM TUBE EXT SCH ×2 (08:40→21:03)
[2023-10-16] MEDS: lisinopril 10 MG TAB PO SCH (08:40)
[2023-10-16] MEDS: ADVANCED PROBIOTIC 1250 MG CAPSULE PO SCH (08:40)
[2023-10-16] MEDS: GABAPENTIN 100 MG CAP PO SCH (08:41)
[2023-10-16] MEDS: carvediloL 3.125 MG TAB PO SCH ×2 (08:41→21:04)
[2023-10-16] MEDS: POTASSIUM CHLORIDE CRTAB 20 MEQ TABCR PO SCH ×2 (08:42→21:08)
[2023-10-16] MEDS: ROSUVASTATIN CALCIUM 5 MG TAB PO SCH (08:43)
[2023-10-16] MEDS: predniSONE 20 MG TAB PO SCH (08:43)
[2023-10-16] MEDS: tiZANidine HCL 4 MG TABLET PO SCH (08:43)
--- NOTE | 2023-10-16 11:54 | XRay Report ---
TWO VIEW CHEST CLINICAL HISTORY: Follow-up pneumonia. FINDINGS: PA and lateral chest radiographs are compared to study dated 10/08/2023 and correlated with chest CT dated 10/10/2023. The cardiomediastinal silhouette is unremarkable noting atherosclerotic c alcification of the thoracic aorta. Chronic interstitial thickening is similar to previous. Right upp er lobe consolidation has resolved. No pleural effusion is identified. There is minimal bibasilar ate lectasis. There is no pneumothorax. The skeletal structures are osteopenic. A compression deformity i s again seen in the midthoracic region. Degenerative change is noted in the spine. IMPRESSION: The lungs are clear. Right upper lobe consolidation has resolved. ACT 112: Negative or not required by law. Electronically signed by: Chuckie Crespo M.D. 10/16/2023 11:52 AM
[2023-10-16] MEDS: GABAPENTIN 300 MG CAP PO SCH ×2 (13:45→21:07)
[2023-10-16] MEDS: BACLOFEN 10 MG TAB PO SCH ×2 (13:45→21:05)
--- NOTE | 2023-10-16 16:45 | Hospitalist Progress Note ---
Date of Service October 16, 2023 Assessment & Plan (1) Pneumonia: Plan: Per admitting service notes with addendum: 70-year-old female with past medical significant for hypertension, hyperlipidemia, GERD, anxiety presents with ongoing pain in the lower rib cage. Patient she smokes 1 pack daily daily for many years. She has smoker's cough. Coughing making her chest hurt more. Seems this is going for more than 6 days now. She was in the [facility] 3 days ago and was told that she has musculoskeletal pain. As it was getting worse she came here today. Coughing up whitish phlegm. Denies any fevers. No shortness of breath. Not eating. Poor appetite. Some nausea and 1 episode of vomiting. No abdominal pain. Has painful micturating. States somewhat anxious and requesting medicines to calm her. RIGHT UPPER LOBE PNEUMONIA Chest pain more while coughing Chest x-ray showing 2.9 cm right midlung nodular density CT chest showing right lung pneumonia predominantly involving the anterior right upper/middle lobes-advised to have repeat CT in 3 months Starting on IV Zosyn and Doxy Pneumonia improving slightly Weaned off oxygen Currently on Zosyn plus doxycycline day number 7 out of 7 Repeat chest x-ray PA and lateral view did not show any pneumonia ambulation and right upper lobe which was noted to be present during prior examination Denies any cough and or chest pain with breathing Antibiotic course is finished Severe,persistent subcostal bilateral pain, worse with movement Likely secondary to pleurisy, musculoskeletal etiology Workup negative for PE, abdomen pelvis abnormalities, pericarditis, DVT Pain medications titrated Currently on prednisone 40 mg daily day #6, taper gradually On oral Dilaudid, oxycodone, tramadol as needed On gabapentin 100 mg 3 times daily, Zanaflex 2 mg 3 times daily Pain management service consulted: Recommend to continue above regimen Pain seems to be not any better-without any radiculopathic pain or any pain at the back to suspected discitis Gabapentin will be increased to 300 mg 3 times daily and Zanaflex will be changed to baclofen 5 mg 3 times daily Will get PT and OT evaluation If the pain is reasonably controlled will be discharged tomorrow Will get ultrasound of the liver to make sure there is no acute cholecystitis given distention of gallbladder on CAT scan HYPONATREMIA Sodium of 125 Patient states she did not eat for last few days Gentle fluids normal saline 50 mill per hour Will check serum osmolality, urine osmolality and urine sodium levels BMP every 6 hours Lexapro is on hold Appreciate nephrology input and recommended HYPERTENSION Continue Coreg and lisinopril GERD On omeprazole Hyperlipidemia On statin Anxiety Continue Lexapro DVT prophylaxis Lovenox Disposition Lives at home Anticipate discharge to home medically stable PT OT evaluation ordered Likely discharge in a day or 2 Admission and Anticipated Discharge Date Admission Date: October 09, 2023 Subjective 10/16/2023 The patient was seen and examined in telemetry unit She has been complaining of burning epigastric pain that goes towards the back to either directions Has been seen by pain therapist and has been on multiple pain medications without much improvement No rash noted and no fever and or chills and no radiculopathic pain Not ready to be discharged with this much pain Review of Systems Review of Systems: All systems reviewed and are unremarkable except as noted below Physical Exam Physical Exam: Sitting at the edge of the bed with acute distress due to abdominal burning pain Constitutional: well developed, well nourished, + ill appearing and average body habitus Eyes: PERRL, conjunctivae normal, anicteric sclerae ENMT: external ear and nose normal, oropharynx normal Neck: trachea midline, no thyromegaly Respiratory: no respiratory distress Auscultation: lungs clear to auscultation bilaterally Cardiovascular: Rate/Rhythm: regular rate and regular rhythm; not tachycardic Heart Sounds: normal S1 and normal S2; no murmur Extremities: no edema Gastrointestinal (Abdomen): Inspection/Auscultation: normal bowel sounds; abdomen not distended Percussion/Palpation: + abdomen tender (Mildly tender epigastrium) Musculoskeletal: No acute arthritis involving any joint Neurologic: normal touch/pain/proprioception and moves all extremities; no focal motor deficits Lymphatic: no cervical or axillary lymphadenopathy Results & Data Results & Data Vital Signs (Past 12 Hours) Vital Signs Temp Pulse Resp BP Pulse Ox O2 Del Method 10/16/23 15:22 36.8 C 87 18 119/79 96 Room Air 10/16/23 11:38 36.8 C 62 18 120/80 93 Room Air 10/16/23 08:00 Room Air 10/16/23 07:14 36.6 C 61 18 147/87 H 95 Room Air Laboratory Results [facility] 10/16/23 06:50 Sodium 135 L Potassium 3.6 Chloride 95 L Carbon Dioxide 32 BUN 34 H Creatinine 0.63 Glucose 83 Calcium 10.1 Medications Administered Current Inpatient Medications Acetaminophen (Acetaminophen 500 Mg Tab) 1,000 mg PO Q8H [facility] Stop: 11/08/23 16:59 Last Admin: 10/16/23 16:34 Dose: 1,000 mg Baclofen (Baclofen 10 Mg Tab) 5 mg PO TID [facility] Stop: 11/15/23 13:59 Last Admin: 10/16/23 13:45 Dose: 5 mg Carvedilol (Carvedilol 3.125 Mg Tab) 3.125 mg PO BID [facility] Stop: 11/08/23 08:59 Last Admin: 10/16/23 08:41 Dose: 3.125 mg Enoxaparin Sodium (Enoxaparin Inj 40 Mg/0.4 Ml Syr) 40 mg SQ Q24H [facility] Stop: 11/08/23 01:29 Last Admin: 10/15/23 20:41 Dose: 40 mg Gabapentin (Gabapentin 300 Mg Cap) 300 mg PO TID [facility] Stop: 11/15/23 13:59 Last Admin: 10/16/23 13:45 Dose: 300 mg Hydralazine HCl (Hydralazine Hcl 20 Mg/Ml Vial) 5 mg IV Q6H PRN PRN Reason: systolic bp > 160 Stop: 11/11/23 09:51 Hydrocortisone (Hydrocortisone 2.5% Cr 30 Gm Tube) 1 appln EXT BID [facility] Stop: 11/10/23 13:54 Last Admin: 10/16/23 08:40 Dose: 1 appln Hydromorphone HCl (Hydromorphone Hcl 2 Mg Tab) 2 mg PO Q4H PRN PRN Reason: Severe Pain (Scale 7, 8, 9,10) Stop: 10/27/23 14:15 Last Admin: 10/16/23 12:50 Dose: 2 mg Ipratropium Coventry (Ipratropium [place] Neb Soln 0.02% 2.5 Ml Vial) 0.5 mg INH Q4R PRN PRN Reason: sob/wheeze Stop: 11/11/23 09:51 Lactobacillus Acidophilus (Advanced Probiotic 1250 Mg Capsule) 2 cap PO DAILY [facility] Stop: 11/09/23 08:59 Last Admin: 10/16/23 08:40 Dose: 2 cap Levalbuterol HCl (Levalbuterol 1.25 Mg/3 Ml Neb) 1.25 mg NEB Q4R PRN PRN Reason: sob/wheeze Stop: 11/11/23 09:51 Lisinopril (Lisinopril 10 Mg Tab) 10 mg PO DAILY [facility] Stop: 11/08/23 08:59 Last Admin: 10/16/23 08:40 Dose: 10 mg Magnesium Hydroxide (Magnesium Hydroxide Susp 30 Ml Udc) 30 ml PO Q6H PRN PRN Reason: Constipation Stop: 11/09/23 09:50 Melatonin (Melatonin 3 Mg Tab) 3 mg PO HS [facility] Stop: 11/10/23 20:59 Last Admin: 10/15/23 20:33 Dose: 3 mg Miscellaneous (Remove Nicoderm Patch) 1 each N/A DAILY@0859 [facility] Stop: 11/09/23 08:58 Last Admin: 10/16/23 08:42 Dose: 1 each Nicotine (Nicotine 14 Mg/24 Hr Patch) 14 mg TD QAM [facility] Stop: 11/09/23 08:59 Last Admin: 10/16/23 08:39 Dose: 14 mg Nitroglycerin (Nitroglycerin Sl 0.4 Mg/Tab Tab) 0.4 mg SL Q5M PRN PRN Reason: Chest Pain Stop: 11/08/23 01:29 Oxycodone HCl (Oxycodone Hcl Ir 5 Mg Tab (Immediate Release)) 7.5 mg PO Q6H PRN PRN Reason: severe pain Stop: 10/23/23 16:52 Last Admin: 10/16/23 08:30 Dose: 7.5 mg Pantoprazole Sodium (Pantoprazole 40 Mg Tab) 40 mg PO DAILY [facility] Stop: 11/08/23 08:59 Last Admin: 10/16/23 08:39 Dose: 40 mg Polyethylene Glycol (Polyethylene (Miralax) 17 Gm Pack) 17 gm PO DAILY [facility] Stop: 11/09/23 09:59 Last Admin: 10/16/23 08:39 Dose: Not Given Potassium Chloride (Potassium Chloride Crtab 20 Meq Tabcr) 20 meq PO QAM [facility] Stop: 11/12/23 09:59 Last Admin: 10/16/23 08:42 Dose: 20 meq Prednisone (Prednisone 20 Mg Tab) 40 mg PO DAILY [facility] Stop: 11/10/23 13:59 Last Admin: 01/03/24 08:43 Dose: 40 mg Rosuvastatin Calcium (Rosuvastatin Calcium 5 Mg Tab) 5 mg PO DAILY [facility] Stop: 11/08/23 08:59 Last Admin: 10/16/23 08:43 Dose: 5 mg Tramadol HCl (Tramadol Hcl 50 Mg Tablet) 50 mg PO Q4H PRN PRN Reason: moderate pain Stop: 11/13/23 10:21 Last Admin: 10/15/23 20:40 Dose: 50 mg Urea (Urea (Urea-Na) 15 Gm Pack) 15 gm PO BID [facility] Stop: 11/08/23 15:14 Last Admin: 10/16/23 08:39 Dose: 15 gm
--- NOTE | 2023-10-16 17:17 | Nephrology Progress Note ---
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 Sodium 138 on 10/15 > 135 today. Potassium is at goal. Urine osmolality was 365 and urine sodium of 43. -Will continue urea 15 g twice daily. Encourage patient to take the urea. -Fluid limit to 1.2 L daily. >>>increased potassium supplement from 20 mill equivalents daily to bid -daily BMP -From renal standpoint patient can be discharged with adequate pain control will sign off; care coordinated w/ Dr Reji mitchell d/c recommendations >>needs at least 2 wk supply of urea 15 gm bid > reviewed w/ pt permission w/ her sister; pls ensure she has this -pt looking for new PCP she tells me > defer to d/c planners, hospitalist to evaluate >needs bmp w/in a week of hospital d/c w/ new PCP -needs hospital d/c appt w/ me in [facility] 2-4 wks after d/c w/ bmp, ur and ser osms, rd urine sodium to be done about 3 days before that visit; orders to be placed by neph RN (2) Pneumonia: Plan: Patient with pneumonia being treated with Zosyn. Continue antibiotics per primary team. Admission and Anticipated Discharge Date Admission Date: October 09, 2023 Subjective ongoing pain ?dermatomal near abdomen/thorax intersection; improving some w/ ice; for RUQ u/s to evalu for cholecystitis; no sob, no n/v, no edema Review of Systems 2 Review of Systems: All systems reviewed & are unremarkable except as noted in Subjective Physical Exam 2 Constitutional: well developed (no acute distress), + frail appearing, cooperative and + malnourished Eyes: EOM intact bilaterally ENMT: Ears: no external ear abnormality Nose: no external nose abnormality Mouth: + dry oral mucous membranes Neck: no nuchal rigidity Respiratory: normal respiratory effort Auscultation: + diminished lung sounds Cardiovascular: RRR, no murmur, no edema Gastrointestinal (Abdomen): Inspection/Auscultation: normal bowel sounds P ercussion/Palpation: abdomen soft; abdomen nontender Musculoskeletal: Extremities: strength 5/5 throughout Skin: no rashes, warm and dry Psychiatric: A+Ox3, euthymic affect Results & Data Vital Signs (Past 12 Hours) Vital Signs Temp Pulse Resp BP Pulse Ox O2 Del Method 10/16/23 15:22 36.8 C 87 18 119/79 96 Room Air 10/16/23 11:38 36.8 C 62 18 120/80 93 Room Air 10/16/23 08:00 Room Air 10/16/23 07:14 36.6 C 61 18 147/87 H 95 Room Air Laboratory Results 10/11/23 06:37 10/16/23 06:50
[2023-10-16] MEDS: ENOXAPARIN INJ 40 MG/0.4 ML SYR SQ SCH (21:14)
[2023-10-17] MEDS: ACETAMINOPHEN 500 MG TAB PO SCH ×3 (00:35→15:38)
[2023-10-17] MEDS: UREA (UREA-NA) 15 GM PACK PO SCH ×3 (01:02→21:56)
[2023-10-17] MEDS: MELATONIN 3 MG TAB PO SCH ×2 (01:04→21:54)
--- NOTE | 2023-10-17 04:13 | Ultrasound Report ---
Exam(s): US LIVER EXAM: US Abdomen Limited, Right Upper Quadrant CLINICAL HISTORY: Reason for exam: r/o cholecystitis. TECHNIQUE: Real-time ultrasound of the right upper quadrant with image documentation. COMPARISON: CT abdomen 10/10/2023. FINDINGS: Liver: 18.1 cm length. Echogenic/fatty. No mass. No intrahepatic bile duct dilation. Gallbladder: Trace sludge. No gallstones. No wall thickening. Cannot assess for sonographic Hook sign due to medication. Common bile duct: 4.5 mm diameter. No stones. No dilation. Pancreas: Obscured by bowel gas. Right kidney: Unremarkable. No stones. No solid mass. No hydronephrosis. IMPRESSION: Trace gallbladder sludge. Prominent liver with fatty infiltration. Electronically signed by: Michael Medina M.D. 10/17/23 04:12 AM
[2023-10-17] MEDS: HYDROmorphone HCL 2 MG TAB PO PRN (04:50)
[2023-10-17] MEDS: PANTOprazole 40 MG TAB PO SCH (08:20)
[2023-10-17] MEDS: POLYETHYLENE (MIRALAX) 17 GM PACK PO SCH (08:21)
[2023-10-17] MEDS: carvediloL 3.125 MG TAB PO SCH ×2 (08:21→21:53)
[2023-10-17] MEDS: BACLOFEN 10 MG TAB PO SCH (08:21)
[2023-10-17] MEDS: predniSONE 20 MG TAB PO SCH (08:21)
[2023-10-17] MEDS: POTASSIUM CHLORIDE CRTAB 20 MEQ TABCR PO SCH ×2 (08:21→21:55)
[2023-10-17] MEDS: lisinopril 10 MG TAB PO SCH (08:21)
[2023-10-17] MEDS: ADVANCED PROBIOTIC 1250 MG CAPSULE PO SCH (08:21)
[2023-10-17] MEDS: ROSUVASTATIN CALCIUM 5 MG TAB PO SCH (08:21)
[2023-10-17] MEDS: GABAPENTIN 300 MG CAP PO SCH (08:21)
[2023-10-17] MEDS: NICOTINE 14 MG/24 HR PATCH TD SCH (08:22)
[2023-10-17] MEDS: HYDROCORTISONE 2.5% CR 30 GM TUBE EXT SCH ×2 (08:28→21:53)
[2023-10-17] MEDS: oxyCODONE HCL IR 5 MG TAB (IMMEDIATE RELEASE) PO PRN ×2 (08:33→19:27)
--- NOTE | 2023-10-17 12:24 | XRay Report ---
XR ribs BI min 4V w CXR1V HISTORY: 73 years-old Female r/o fracture acute chest with bilateral rib pain COMPARISON: 10/16/2023 chest radiographs, CT chest 10/10/2023 TECHNIQUE: 7 total radiographs were submitted FINDINGS: Cardiomediastinal and hilar silhouettes are within normal limits. Atherosclerosis of the aorta. No pn eumothorax, pleural effusion or airspace consolidation. Cortical thickening of the anterolateral righ t fifth, sixth and seventh ribs redemonstrated compatible with chronic fractures. A few additional he aled chronic left-sided rib fractures are present. No acute displaced rib fracture identified. IMPRESSION: 1. No acute process of the chest. 2. Chronic bilateral rib fractures. 3. No acute displaced rib fracture or pneumothorax identified. ACT 112: Negative or not required by law. The above report was generated using voice recognition software. It may contain grammatical, syntax o r spelling errors. Electronically signed by: Kai Gandhi M.D. 10/17/2023 12:22 PM
[2023-10-17] MEDS ORDERED: MoRPHine SULFATE 2 MG/ML CARP IV STA (12:49)
--- NOTE | 2023-10-17 13:03 | Magnetic Resonance Report ---
THORACIC SPINE MRI HISTORY: Back pain. R/O nerve compression TECHNIQUE: Multiplanar multisequence MRI of the thoracic spine was performed without the use of contr ast. COMPARISON: Chest CTA 10/10/2023. FINDINGS: There is again noted a severe anterior wedge-shaped compression fracture at T7. This remains unchange d. This demonstrate minimal marrow edema. Therefore, this favors a subacute to chronic compression fr acture. There is mild paravertebral edema at this level. This demonstrates up to 70% loss of height a nteriorly. No associated retropulsion of the bony structures. However, there appear to be a focal viki tral disc protrusions at the T6-T7 and T7-T8 levels. These are suboptimally assessed due to the motio n artifact. These abut and deform the thoracic spinal cord at this level and results in mild to moder ate cord deformity and mild to moderate central canal narrowing. This most pronounced at the T7-T8 le geovanny with the AP diameter of the central canal measuring 6 mm. The T7-T8 disc protrusion measures appr oximately 8 x 5 mm and the T6-T7 disc protrusion measures approximately 6 x 4 mm. The thoracic spinal cord demonstrate a normal signal intensity. There is severe bilateral neural foraminal narrowing at T7-T8. Mild interspinous soft tissue edema at the T7-T8 level. IMPRESSION: 1. A subacute to chronic severe anterior wedge-shaped compression fracture at T7. This remains unchan ged. There is mild edema within the vertebral body and mild surrounding paravertebral edema. 2. There are focal central disc protrusions at T6-T7 and T7-T8 which are suboptimally assessed due to the motion artifact. These appear to abut and deform the thoracic spinal cord resulting in mild to m oderate cord deformity and mild to moderate central canal narrowing at these levels as described abov e. This is most pronounced at the T7-T8 level. 3. Mild interspinous soft tissue edema at the T7-T8 level could represent ligamentous injury. ACT 112: Negative or not required by law. Electronically signed by: Brayden Belle M.D. 10/17/2023 1:02 PM
[2023-10-17] MEDS: GABAPENTIN 100 MG CAP PO SCH ×2 (14:08→21:57)
--- NOTE | 2023-10-17 14:35 | Hospitalist Progress Note ---
Date of Service October 17, 2023 Assessment & Plan (1) Pneumonia: Plan: Per admitting service notes with addendum: 70-year-old female with past medical significant for hypertension, hyperlipidemia, GERD, anxiety presents with ongoing pain in the lower rib cage. Patient she smokes 1 pack daily daily for many years. She has smoker's cough. Coughing making her chest hurt more. Seems this is going for more than 6 days now. She was in the [facility] 3 days ago and was told that she has musculoskeletal pain. As it was getting worse she came here today. Coughing up whitish phlegm. Denies any fevers. No shortness of breath. Not eating. Poor appetite. Some nausea and 1 episode of vomiting. No abdominal pain. Has painful micturating. States somewhat anxious and requesting medicines to calm her. Chronic bilateral rib fractures showing cortical thickening of the anterolateral right fifth sixth and seventh ribs with a few additional healed chronic left- sided rib fractures are present as well Subacute to chronic severe anterior wedge shaped compression fracture at T7 with mild edema within the vertebral body and mild surrounding paravertebral edema Focal central disc protrusions T6-T7 and T7-T8 which are suboptimally assessed due to motion artifact with mild to moderate central canal narrowing most pronounced at T7-T8 level. Mild interspinous soft tissue edema at T7-T8 level and could have ligamentous injury Severe,persistent subcostal bilateral pain, worse with movement Likely secondary to pleurisy, musculoskeletal etiology Workup negative for PE, abdomen pelvis abnormalities, pericarditis, DVT Pain medications titrated Currently on prednisone 40 mg daily day #6, taper gradually On oral Dilaudid, oxycodone, tramadol as needed On gabapentin 100 mg 3 times daily, Zanaflex 2 mg 3 times daily Pain management service consulted: Recommend to continue above regimen Pain seems to be not any better-without any radiculopathic pain or any pain at the back to suspected discitis Gabapentin will be increased to 300 mg 3 times daily and Zanaflex will be changed to baclofen 5 mg 3 times daily Will get PT and OT evaluation If the pain is reasonably controlled will be discharged tomorrow Will get ultrasound of the liver to make sure there is no acute cholecystitis given distention of gallbladder on CAT scan Ultrasound did not show any acute cholecystitis X-ray of the ribs showed old rib fractures MRI of the thoracic spine showed multilevel disc disease with central disc protrusion could be the cause of pain Oxycodone has been prescribed Will ask orthospine opinion RIGHT UPPER LOBE PNEUMONIA Chest pain more while coughing Chest x-ray showing 2.9 cm right midlung nodular density CT chest showing right lung pneumonia predominantly involving the anterior right upper/middle lobes-advised to have repeat CT in 3 months Starting on IV Zosyn and Doxy Pneumonia improving slightly Weaned off oxygen Currently on Zosyn plus doxycycline day number 7 out of 7 Repeat chest x-ray PA and lateral view did not show any pneumonia ambulation and right upper lobe which was noted to be present during prior examination Denies any cough and or chest pain with breathing Antibiotic course is finished HYPONATREMIA Sodium of 125 Patient states she did not eat for last few days Gentle fluids normal saline 50 mill per hour Will check serum osmolality, urine osmolality and urine sodium levels BMP every 6 hours Lexapro is on hold Appreciate nephrology input and recommended HYPERTENSION Continue Coreg and lisinopril GERD On omeprazole Hyperlipidemia On statin Anxiety Continue Lexapro DVT prophylaxis Lovenox Disposition Lives at home Anticipate discharge to home medically stable PT OT evaluation ordered Likely discharge in a day or 2 Admission and Anticipated Discharge Date Admission Date: October 09, 2023 Subjective 10/16/2023 The patient was seen and examined in telemetry unit She has been complaining of burning epigastric pain that goes towards the back to either directions Has been seen by pain therapist and has been on multiple pain medications without much improvement No rash noted and no fever and or chills and no radiculopathic pain Not ready to be discharged with this much pain 10/17/2023 The patient was seen and examined in telemetry unit She has been complaining of more pain bilaterally lower chest which goes around the back and informed in the epigastric area She complained the pain to be burning in nature and sometimes movement makes it worse Denies any shortness of breath associated with it and denies any precordial chest pain Review of Systems Review of Systems: All systems reviewed and are unremarkable except as noted below Physical Exam Physical Exam: Sitting at the edge of the bed with acute distress due to abdominal burning pain Constitutional: well developed, well nourished, + ill appearing and average body habitus Eyes: PERRL, conjunctivae normal, anicteric sclerae ENMT: external ear and nose normal, oropharynx normal Neck: trachea midline, no thyromegaly Respiratory: no respiratory distress Auscultation: lungs clear to auscultation bilaterally Cardiovascular: Rate/Rhythm: regular rate and regular rhythm; not tachycardic Heart Sounds: normal S1 and normal S2; no murmur Extremities: no edema Chest (Breasts): Additional Comments: Localized tenderness noted lower lateral and sometimes anterior chest wall on either side Gastrointestinal (Abdomen): Inspection/Auscultation: normal bowel sounds; abdomen not distended Percussion/Palpation: + abdomen tender (Mildly tender epigastrium) Musculoskeletal: No acute arthritis involving any joint. No tender spot noted along the thoracic spine Neurologic: normal touch/pain/proprioception and moves all extremities; no focal motor deficits Lymphatic: no cervical or axillary lymphadenopathy Results & Data Results & Data Vital Signs (Past 12 Hours) Vital Signs Temp Pulse Pulse Resp BP Pulse Ox O2 Del Method 10/17/23 11:15 36.7 C 99 H 18 120/86 94 Room Air 10/17/23 08:20 Room Air 10/17/23 07:30 36.7 C 100 H 18 133/87 97 Room Air 10/17/23 06:00 89 10/17/23 02:30 36.7 C 112 H 22 144/100 H 95 Room Air Medications Administered Current Inpatient Medications Acetaminophen (Acetaminophen 500 Mg Tab) 1,000 mg PO Q8H [facility] Stop: 11/08/23 16:59 Last Admin: 10/17/23 08:20 Dose: 1,000 mg Carvedilol (Carvedilol 3.125 Mg Tab) 3.125 mg PO BID [facility] Stop: 11/08/23 08:59 Last Admin: 10/17/23 08:21 Dose: 3.125 mg Enoxaparin Sodium (Enoxaparin Inj 40 Mg/0.4 Ml Syr) 40 mg SQ Q24H [facility] Stop: 11/08/23 01:29 Last Admin: 10/16/23 21:14 Dose: 40 mg Gabapentin (Gabapentin 100 Mg Cap) 100 mg PO TID [facility] Stop: 11/16/23 13:59 Last Admin: 10/17/23 14:08 Dose: 100 mg Hydralazine HCl (Hydralazine Hcl 20 Mg/Ml Vial) 5 mg IV Q6H PRN PRN Reason: systolic bp > 160 Stop: 11/11/23 09:51 Hydrocortisone (Hydrocortisone 2.5% Cr 30 Gm Tube) 1 appln EXT BID [facility] Stop: 11/10/23 13:54 Last Admin: 10/17/23 08:28 Dose: 1 appln Ipratropium [place] (Ipratropium [place] Neb Soln 0.02% 2.5 Ml Vial) 0.5 mg INH Q4R PRN PRN Reason: sob/wheeze Stop: 11/11/23 09:51 Lactobacillus Acidophilus (Advanced Probiotic 1250 Mg Capsule) 2 cap PO DAILY [facility] Stop: 11/09/23 08:59 Last Admin: 10/17/23 08:21 Dose: 2 cap Levalbuterol HCl (Levalbuterol 1.25 Mg/3 Ml Neb) 1.25 mg NEB Q4R PRN PRN Reason: sob/wheeze Stop: 11/11/23 09:51 Lisinopril (Lisinopril 10 Mg Tab) 10 mg PO DAILY [facility] Stop: 11/08/23 08:59 Last Admin: 10/17/23 08:21 Dose: 10 mg Magnesium Hydroxide (Magnesium Hydroxide Susp 30 Ml Udc) 30 ml PO Q6H PRN PRN Reason: Constipation Stop: 11/09/23 09:50 Melatonin (Melatonin 3 Mg Tab) 3 mg PO HS [facility] Stop: 11/10/23 20:59 Last Admin: 10/17/23 01:04 Dose: 3 mg Miscellaneous (Remove Nicoderm Patch) 1 each N/A DAILY@0859 [facility] Stop: 11/09/23 08:58 Last Admin: 10/17/23 08:22 Dose: 1 each Nicotine (Nicotine 14 Mg/24 Hr Patch) 14 mg TD QAM [facility] Stop: 11/09/23 08:59 Last Admin: 10/17/23 08:22 Dose: 14 mg Nitroglycerin (Nitroglycerin Sl 0.4 Mg/Tab Tab) 0.4 mg SL Q5M PRN PRN Reason: Chest Pain Stop: 11/08/23 01:29 Oxycodone HCl (Oxycodone Hcl Ir 5 Mg Tab (Immediate Release)) 5 mg PO Q4H PRN PRN Reason: severe pain Stop: 10/24/23 17:17 Pantoprazole Sodium (Pantoprazole 40 Mg Tab) 40 mg PO DAILY [facility] Stop: 11/08/23 08:59 Last Admin: 10/17/23 08:20 Dose: 40 mg Polyethylene Glycol (Polyethylene (Miralax) 17 Gm Pack) 17 gm PO DAILY [facility] Stop: 11/09/23 09:59 Last Admin: 10/17/23 08:21 Dose: 17 gm Potassium Chloride (Potassium Chloride Crtab 20 Meq Tabcr) 20 meq PO BID [facility] Stop: 11/15/23 20:59 Last Admin: 10/17/23 08:21 Dose: 20 meq Prednisone (Prednisone 20 Mg Tab) 40 mg PO DAILY [facility] Stop: 11/10/23 13:59 Last Admin: 10/17/23 08:21 Dose: 40 mg Rosuvastatin Calcium (Rosuvastatin Calcium 5 Mg Tab) 5 mg PO DAILY [facility] Stop: 11/08/23 08:59 Last Admin: 10/17/23 08:21 Dose: 5 mg Tramadol HCl (Tramadol Hcl 50 Mg Tablet) 50 mg PO Q4H PRN PRN Reason: moderate pain Stop: 11/13/23 10:21 Last Admin: 10/15/23 20:40 Dose: 50 mg Urea (Urea (Urea-Na) 15 Gm Pack) 15 gm PO BID [facility] Stop: 11/08/23 15:14 Last Admin: 10/17/23 08:20 Dose: 15 gm
[2023-10-17] MEDS: ENOXAPARIN INJ 40 MG/0.4 ML SYR SQ SCH (21:56)
[2023-10-18] MEDS: oxyCODONE HCL IR 5 MG TAB (IMMEDIATE RELEASE) PO PRN ×3 (00:04→08:48)
[2023-10-18] MEDS: ACETAMINOPHEN 500 MG TAB PO SCH ×2 (00:05→08:55)
[2023-10-18 07:39] LABS: Creatinine Clr Calc Pharmacy 79.5 ml/min; Est GFR (African American) 105.1 ml/min; Est GFR (Non-African American) 90.7 ml/min
[2023-10-18] MEDS: UREA (UREA-NA) 15 GM PACK PO SCH (08:51)
[2023-10-18] MEDS: POLYETHYLENE (MIRALAX) 17 GM PACK PO SCH (08:51)
[2023-10-18] MEDS: ROSUVASTATIN CALCIUM 5 MG TAB PO SCH (08:51)
[2023-10-18] MEDS: predniSONE 20 MG TAB PO SCH (08:52)
[2023-10-18] MEDS: HYDROCORTISONE 2.5% CR 30 GM TUBE EXT SCH (08:52)
[2023-10-18] MEDS: PANTOprazole 40 MG TAB PO SCH (08:52)
[2023-10-18] MEDS: POTASSIUM CHLORIDE CRTAB 20 MEQ TABCR PO SCH (08:52)
[2023-10-18] MEDS: GABAPENTIN 100 MG CAP PO SCH ×2 (08:53→12:59)
[2023-10-18] MEDS: ADVANCED PROBIOTIC 1250 MG CAPSULE PO SCH (08:53)
[2023-10-18] MEDS: carvediloL 3.125 MG TAB PO SCH (08:54)
[2023-10-18] MEDS: lisinopril 10 MG TAB PO SCH (08:55)
[2023-10-18] MEDS: NICOTINE 14 MG/24 HR PATCH TD SCH (08:56)
--- NOTE | 2023-10-18 10:16 | Orthopedic Consultation ---
Date of Consultation October 18, 2023 Assessment & Plan (1) Compression fracture of T7 vertebra: Patient does have a T7 compression fracture with disc protrusions causing alteration in contour of the cord. She is not overtly myelopathic and has no weakness in her lower extremities. She is markedly tender palpation anteriorly along the ribs. It is not clear that her symptoms are frankly radicular in nature. Dr. Pinzon and I reviewed the case and believe this point no surgical intervention is indicated. Conservative measures consisting of pain control topical analgesics such as lidocaine patches would be reasonable. We do not feel the patient would tolerate a brace. Please contact us with any other questions or concerns History of Present Illness Attending Physician: Mike Mendoza MD History of Present Illness Patient is a 73-year-old female who had the acute onset of pain in the lower portion of back radiating to both of her ribs underneath her chest approximately 2 weeks ago. She recalls lifting a heavy chair having some twinges of pain in her back that she carry groceries in the house which also induce more pain. She has a known pneumonia is a current smoker and any type of coughing increases her pain significantly. Any pressure underneath her ribs reproduces her pain. She has not noted any skin lesions. She has had no fever or chills. She denies any previous history of trauma. She denies any other numbness, tingling, or paresthesias. She is not having any clumsiness. She has no weakness in her legs is able to walk without any assistive devices. Allergies Allergy/AdvReac Type Severity Reaction Status Date / Time ibuprofen [From Motrin] AdvReac Vomiting Verified 10/08/23 23:53 Home Medications Medication Instructions Recorded Confirmed Type carvedilol 3.125 mg tablet 3.125 mg PO BID 10/09/23 10/09/23 History escitalopram oxalate 20 mg tablet 20 mg PO DAILY 10/09/23 10/09/23 History lisinopril 10 mg tablet 10 mg PO DAILY 10/09/23 10/09/23 History omeprazole 20 mg capsule,delayed 20 mg PO DAILY 10/09/23 10/09/23 History release rosuvastatin 5 mg tablet 5 mg PO DAILY 10/09/23 10/09/23 History Patient History Medical History (Updated 10/18/23 @ 10:14 by Michael Flanagan PA-C) Pleurisy Social History Smoking Status: Heavy tobacco smoker Tobacco Type: Cigarettes Hx Alcohol Use: Yes Alcohol type: beer Hx Substance Use: No Preferred Language: Turkmen Communication Ability: Effective [employer] Required: No Beliefs That Will Affect Care: None Current Living Situation: Alone Feels Safe at Home: Yes Assistive Devices: Denture - Upper, Denture - Lower and Glasses Physical Exam Physical Exam: On exam she is alert and oriented. Her visual fuentes are grossly intact. She has full range of motion of her hips and knees full range of motion of her neck. She is markedly tender to palpation anteriorly just under the breast. No skin rashes or lesions are noted. Her lower extremity motor exam reveals no focal atrophy or strength 5 out of 5 to detailed muscle testing without exception. Babinski is negative there is no clonus. She has normal reflexive in her patellar and Achilles reflexes. Cardiovascular exam reveals no gross abnormalities. Results & Data Vital Signs (Past 12 Hours) Vital Signs Temp Pulse Pulse Resp BP Pulse Ox O2 Del Method 10/18/23 07:35 36.7 C 89 18 134/88 93 Room Air 10/17/23 23:38 95 H 10/17/23 22:59 36.9 C 92 H 18 115/74 95 Room Air Diagnostic Findings MRI of the thoracic spine is reviewed. This reveals a subacute to chronic T7 compression fracture with about 70% anterior height loss. There are disc protrusions at T6-7 and T7-8 causing alteration in the contour of the cord there is no gliosis in the cord. No other fractures or subluxations are noted.
[2023-10-18] MEDS ORDERED: oxyCODONE HCL IR 5 MG TAB (IMMEDIATE RELEASE) PO PRN (11:23)
[2023-10-18] MEDS ORDERED: BACLOFEN 10 MG TAB PO PRN (11:25)
[2023-10-18] MEDS ORDERED: LIDOCAINE 5% 1 PATCH TD SCH (11:30)
--- NOTE | 2023-10-18 12:49 | Hospitalist Progress Note ---
Date of Service October 18, 2023 Assessment & Plan (1) Pneumonia: Plan: Per admitting service notes with addendum: 70-year-old female with past medical significant for hypertension, hyperlipidemia, GERD, anxiety presents with ongoing pain in the lower rib cage. Patient she smokes 1 pack daily daily for many years. She has smoker's cough. Coughing making her chest hurt more. Seems this is going for more than 6 days now. [facility] and was told that she has musculoskeletal pain. As it was getting worse she came here today. Coughing up whitish phlegm. Denies any fevers. No shortness of breath. Not eating. Poor appetite. Some nausea and 1 episode of vomiting. No abdominal pain. Has painful micturating. States somewhat anxious and requesting medicines to calm her. Chronic bilateral rib fractures showing cortical thickening of the anterolateral right fifth sixth and seventh ribs with a few additional healed chronic left- sided rib fractures are present as well Subacute to chronic severe anterior wedge shaped compression fracture at T7 with mild edema within the vertebral body and mild surrounding paravertebral edema Focal central disc protrusions T6-T7 and T7-T8 which are suboptimally assessed due to motion artifact with mild to moderate central canal narrowing most pronounced at T7-T8 level. Mild interspinous soft tissue edema at T7-T8 level and could have ligamentous injury Severe,persistent subcostal bilateral pain, worse with movement Likely secondary to pleurisy, musculoskeletal etiology Workup negative for PE, abdomen pelvis abnormalities, pericarditis, DVT Pain medications titrated Currently on prednisone 40 mg daily day #6, taper gradually On oral Dilaudid, oxycodone, tramadol as needed On gabapentin 100 mg 3 times daily, Zanaflex 2 mg 3 times daily Pain management service consulted: Recommend to continue above regimen Pain seems to be not any better-without any radiculopathic pain or any pain at the back to suspected discitis Gabapentin will be increased to 300 mg 3 times daily and Zanaflex will be changed to baclofen 5 mg 3 times daily Will get PT and OT evaluation If the pain is reasonably controlled will be discharged tomorrow Will get ultrasound of the liver to make sure there is no acute cholecystitis given distention of gallbladder on CAT scan Ultrasound did not show any acute cholecystitis X-ray of the ribs showed old rib fractures MRI of the thoracic spine showed multilevel disc disease with central disc protrusion could be the cause of pain Oxycodone has been prescribed Appreciate orthospine input and recommendation. No surgery at this time due to complex procedure and also patient does not want to go for that, no brace will be helpful We will continue current pain medications and apply lidocaine patch Likely discharge this afternoon with PCP follow-up sooner than later RIGHT UPPER LOBE PNEUMONIA Chest pain more while coughing Chest x-ray showing 2.9 cm right midlung nodular density CT chest showing right lung pneumonia predominantly involving the anterior right upper/middle lobes-advised to have repeat CT in 3 months Starting on IV Zosyn and Doxy Pneumonia improving slightly Weaned off oxygen Currently on Zosyn plus doxycycline day number 7 out of 7 Repeat chest x-ray PA and lateral view did not show any pneumonia ambulation and right upper lobe which was noted to be present during prior examination Denies any cough and or chest pain with breathing Antibiotic course is finished HYPONATREMIA Sodium of 125 Patient states she did not eat for last few days Gentle fluids normal saline 50 mill per hour Will check serum osmolality, urine osmolality and urine sodium levels BMP every 6 hours Lexapro is on hold Appreciate nephrology input and recommended Sodium level remains stable at 135-does not like to take urine anymore and that will not be given She will a follow-up appointment with PCP within 3 to 4 days HYPERTENSION Continue Coreg and lisinopril GERD On omeprazole Hyperlipidemia On statin Anxiety Continue Lexapro DVT prophylaxis Lovenox Disposition Lives at home Anticipate discharge to home medically stable PT OT evaluation ordered Will be discharged home this afternoon Admission and Anticipated Discharge Date Admission Date: October 09, 2023 Subjective 10/16/2023 The patient was seen and examined in telemetry unit She has been complaining of burning epigastric pain that goes towards the back to either directions Has been seen by pain therapist and has been on multiple pain medications without much improvement No rash noted and no fever and or chills and no radiculopathic pain Not ready to be discharged with this much pain 10/17/2023 The patient was seen and examined in telemetry unit She has been complaining of more pain bilaterally lower chest which goes around the back and informed in the epigastric area She complained the pain to be burning in nature and sometimes movement makes it worse Denies any shortness of breath associated with it and denies any precordial chest pain 10/18/2023 The patient was seen and examined in telemetry unit She still complains to her pain starts in the back and comes around the abdomen Has been seen by orthopedic surgeon and not for any surgery and/or brace at this time Continue with current conservative management Review of Systems Review of Systems: All systems reviewed and are unremarkable except as noted below Physical Exam Physical Exam: Sitting at the edge of the bed with acute distress due to abdominal burning pain Constitutional: well developed, well nourished, + ill appearing and average body habitus Eyes: PERRL, conjunctivae normal, anicteric sclerae ENMT: external ear and nose normal, oropharynx normal Neck: trachea midline, no thyromegaly Respiratory: no respiratory distress Auscultation: lungs clear to auscultation bilaterally Cardiovascular: Rate/Rhythm: regular rate and regular rhythm; not tachycardic Heart Sounds: normal S1 and normal S2; no murmur Extremities: no edema Gastrointestinal (Abdomen): Inspection/Auscultation: normal bowel sounds; abdomen not distended Percussion/Palpation: + abdomen tender (Mildly tender epigastrium) Musculoskeletal: Severe pain involving the upper abdomen and bilaterally lower ribs up to the back. No weakness involving any of the extremities Neurologic: normal touch/pain/proprioception and moves all extremities; no focal motor deficits Lymphatic: no cervical or axillary lymphadenopathy Results & Data Results & Data Vital Signs (Past 12 Hours) Vital Signs Temp Pulse Pulse Resp BP Pulse Ox O2 Del Method 10/18/23 11:29 36.7 C 105 H 18 115/79 96 Room Air 10/18/23 08:15 103 H 10/18/23 07:35 36.7 C 89 18 134/88 93 Room Air Laboratory Results [facility] 10/18/23 06:55 Creatinine 0.57 L Medications Administered Current Inpatient Medications Acetaminophen (Acetaminophen 500 Mg Tab) 1,000 mg PO Q8H [facility] Stop: 11/08/23 16:59 Last Admin: 10/18/23 08:55 Dose: 1,000 mg Baclofen (Baclofen 10 Mg Tab) 5 mg PO TID PRN PRN Reason: Muscle Spasm Stop: 11/17/23 13:59 Carvedilol (Carvedilol 3.125 Mg Tab) 3.125 mg PO BID [facility] Stop: 11/08/23 08:59 Last Admin: 10/18/23 08:54 Dose: 3.125 mg Enoxaparin Sodium (Enoxaparin Inj 40 Mg/0.4 Ml Syr) 40 mg SQ Q24H [facility] Stop: 11/08/23 01:29 Last Admin: 10/17/23 21:56 Dose: 40 mg Gabapentin (Gabapentin 100 Mg Cap) 100 mg PO TID [facility] Stop: 11/16/23 13:59 Last Admin: 10/18/23 08:53 Dose: 100 mg Hydralazine HCl (Hydralazine Hcl 20 Mg/Ml Vial) 5 mg IV Q6H PRN PRN Reason: systolic bp > 160 Stop: 11/11/23 09:51 Hydrocortisone (Hydrocortisone 2.5% Cr 30 Gm Tube) 1 appln EXT BID [facility] Stop: 11/10/23 13:54 Last Admin: 10/18/23 08:52 Dose: 1 appln Ipratropium [place] (Ipratropium [place] Neb Soln 0.02% 2.5 Ml Vial) 0.5 mg INH Q4R PRN PRN Reason: sob/wheeze Stop: 11/11/23 09:51 Lactobacillus Acidophilus (Advanced Probiotic 1250 Mg Capsule) 2 cap PO DAILY [facility] Stop: 11/09/23 08:59 Last Admin: 10/18/23 08:53 Dose: 2 cap Levalbuterol HCl (Levalbuterol 1.25 Mg/3 Ml Neb) 1.25 mg NEB Q4R PRN PRN Reason: sob/wheeze Stop: 11/11/23 09:51 Lidocaine (Lidocaine 5% 1 Patch) 1 patch TD QAM [facility] Stop: 11/17/23 11:29 Lisinopril (Lisinopril 10 Mg Tab) 10 mg PO DAILY [facility] Stop: 11/08/23 08:59 Last Admin: 10/18/23 08:55 Dose: 10 mg Magnesium Hydroxide (Magnesium Hydroxide Susp 30 Ml Udc) 30 ml PO Q6H PRN PRN Reason: Constipation Stop: 11/09/23 09:50 Melatonin (Melatonin 3 Mg Tab) 3 mg PO HS [facility] Stop: 11/10/23 20:59 Last Admin: 10/17/23 21:54 Dose: 3 mg Miscellaneous (Remove Nicoderm Patch) 1 each N/A DAILY@0859 [facility] Stop: 11/09/23 08:58 Last Admin: 10/17/23 08:22 Dose: 1 each Miscellaneous (Remove Lidoderm Patch) 1 each N/A DAILY@2100 [facility] Stop: 11/17/23 20:59 Nicotine (Nicotine 14 Mg/24 Hr Patch) 14 mg TD QAM [facility] Stop: 11/09/23 08:59 Last Admin: 10/18/23 08:56 Dose: 14 mg Nitroglycerin (Nitroglycerin Sl 0.4 Mg/Tab Tab) 0.4 mg SL Q5M PRN PRN Reason: Chest Pain Stop: 11/08/23 01:29 Oxycodone HCl (Oxycodone Hcl Ir 5 Mg Tab (Immediate Release)) 7.5 mg PO Q4H PRN PRN Reason: severe pain Stop: 10/24/23 17:17 Pantoprazole Sodium (Pantoprazole 40 Mg Tab) 40 mg PO DAILY [facility] Stop: 11/08/23 08:59 Last Admin: 10/18/23 08:52 Dose: 40 mg Polyethylene Glycol (Polyethylene (Miralax) 17 Gm Pack) 17 gm PO DAILY [facility] Stop: 11/09/23 09:59 Last Admin: 10/18/23 08:51 Dose: Not Given Potassium Chloride (Potassium Chloride Crtab 20 Meq Tabcr) 20 meq PO BID [facility] Stop: 11/15/23 20:59 Last Admin: 10/18/23 08:52 Dose: 20 meq Prednisone (Prednisone 20 Mg Tab) 40 mg PO DAILY [facility] Stop: 11/10/23 13:59 Last Admin: 10/18/23 08:52 Dose: 40 mg Rosuvastatin Calcium (Rosuvastatin Calcium 5 Mg Tab) 5 mg PO DAILY [facility] Stop: 11/08/23 08:59 Last Admin: 10/18/23 08:51 Dose: 5 mg Tramadol HCl (Tramadol Hcl 50 Mg Tablet) 50 mg PO Q4H PRN PRN Reason: moderate pain Stop: 11/13/23 10:21 Last Admin: 10/15/23 20:40 Dose: 50 mg Urea (Urea (Urea-Na) 15 Gm Pack) 15 gm PO BID [facility] Stop: 11/08/23 15:14 Last Admin: 10/18/23 08:51 Dose: 15 gm
--- NOTE | 2023-10-19 09:14 | Discharge Summary ---
Date of Service October 18, 2023 Admission HPI Per Admitting Provider Chief Complaint: 70-year-old female with past medical history significant for hypertension, hyperlipidemia, GERD, anxiety presents with ongoing pain in the bilateral lower rib cage. Patient states smokes 1 pack daily daily for many years. She has smoker's cough. Coughing making her chest hurt more. Seems this is going for more than 6 days now. She was in the [facility] 3 days ago and was told that she has musculoskeletal pain. As it was getting worse she came here today. Coughing up whitish phlegm. Denies any fevers. No shortness of breath. Not eating. Poor appetite. Some nausea and had 1 episode of vomiting. No abdominal pain. Stools are somewhat loose. Has painful micturating. States somewhat anxious and requesting medicines to calm her. Past medical history. As mentioned above Past surgical history. None as per patient Social history. Smokes 1 pack a day for last 60 years. Denies alcohol use. Family history. Mother of old age. Father had alcoholism and kidney failure. Primary Care Provider: Admission Exam Per Admitting Provider Physical Exam: General- Not in distress Head- atraumatic Eyes- PERRL. ENT- oropharynx clear Neck- supple, no JVD. Lungs- clear to auscultation no wheezing or crackles. Heart- regular rhythm; no murmur, no gallop. Abdomen- normal bowel sounds, soft, nontender, no distension Extremities- no pretibial edema, no erythema seen. Neuro- alert, oriented x 3;, EOMI; no facial palsy; no dysarthria; moves extremities. Skin- warm & dry Principal Diagnosis Acute back pain secondary to thoracic disc protrusion, chronic bilateral ribs fracture, hyponatremia, pneumonia Discharge Exam Sitting at the edge of the bed with acute distress due to abdominal burning pain Constitutional well developed, well nourished, + ill appearing and average body habitus Eyes PERRL, conjunctivae normal, anicteric sclerae ENMT external ear and nose normal, oropharynx normal Neck trachea midline, no thyromegaly Respiratory no respiratory distress Auscultation: lungs clear to auscultation bilaterally Cardiovascular Rate/Rhythm: regular rate and regular rhythm; not tachycardic Heart Sounds: normal S1 and normal S2; no murmur Extremities: no edema Gastrointestinal (Abdomen) Inspection/Auscultation: normal bowel sounds; abdomen not distended Percussion/Palpation: + abdomen tender (Mildly tender epigastrium) Neurologic normal touch/pain/proprioception and moves all extremities; no focal motor deficits Lymphatic no cervical or axillary lymphadenopathy Discharge Data Allergies Allergy/AdvReac Type Severity Reaction Status Date / Time ibuprofen [From Motrin] AdvReac Vomiting Verified 10/08/23 23:53 Consultations 10/08/23 22:55 ED Decision to Admit Stat 10/09/23 01:30 Consult Nephrology Routine 10/14/23 10:38 Consult Pain Management Routine 10/17/23 13:35 Consult Orthopedic Spine Surgery Routine Ordered Studies 10/08/23 18:06 CT chest diagnostic w con Stat 10/10/23 09:50 US venous doppler LE BI Urgent 10/10/23 13:40 CT abd pelvis IV con only Stat CT angio chest PE protocol Stat 10/16/23 16:40 US liver Urgent 10/17/23 10:41 MR thoracic spine wo con Urgent Hospital Course (1) Pneumonia: Per admitting service notes with addendum: 70-year-old female with past medical significant for hypertension, hyperlipidemia, GERD, anxiety presents with ongoing pain in the lower rib cage. Patient she smokes 1 pack daily daily for many years. She has smoker's cough. Coughing making her chest hurt more. Seems this is going for more than 6 days now. She was in the [facility] 3 days ago and was told that she has musculoskeletal pain. As it was getting worse she came here today. Coughing up whitish phlegm. Denies any fevers. No shortness of breath. Not eating. Poor appetite. Some nausea and 1 episode of vomiting. No abdominal pain. Has painful micturating. States somewhat anxious and requesting medicines to calm her. Chronic bilateral rib fractures showing cortical thickening of the anterolateral right fifth sixth and seventh ribs with a few additional healed chronic left- sided rib fractures are present as well Subacute to chronic severe anterior wedge shaped compression fracture at T7 with mild edema within the vertebral body and mild surrounding paravertebral edema Focal central disc protrusions T6-T7 and T7-T8 which are suboptimally assessed due to motion artifact with mild to moderate central canal narrowing most pronounced at T7-T8 level. Mild interspinous soft tissue edema at T7-T8 level and could have ligamentous injury Severe,persistent subcostal bilateral pain, worse with movement Likely secondary to pleurisy, musculoskeletal etiology Workup negative for PE, abdomen pelvis abnormalities, pericarditis, DVT Pain medications titrated Currently on prednisone 40 mg daily day #6, taper gradually On oral Dilaudid, oxycodone, tramadol as needed On gabapentin 100 mg 3 times daily, Zanaflex 2 mg 3 times daily Pain management service consulted: Recommend to continue above regimen Pain seems to be not any better-without any radiculopathic pain or any pain at the back to suspected discitis Gabapentin will be increased to 300 mg 3 times daily and Zanaflex will be changed to baclofen 5 mg 3 times daily Will get PT and OT evaluation If the pain is reasonably controlled will be discharged tomorrow Will get ultrasound of the liver to make sure there is no acute cholecystitis given distention of gallbladder on CAT scan Ultrasound did not show any acute cholecystitis X-ray of the ribs showed old rib fractures MRI of the thoracic spine showed multilevel disc disease with central disc protrusion could be the cause of pain Oxycodone has been prescribed Appreciate orthospine input and recommendation. No surgery at this time due to complex procedure and also patient does not want to go for that, no brace will be helpful We will continue current pain medications and apply lidocaine patch Likely discharge this afternoon with PCP follow-up sooner than later RIGHT UPPER LOBE PNEUMONIA Chest pain more while coughing Chest x-ray showing 2.9 cm right midlung nodular density CT chest showing right lung pneumonia predominantly involving the anterior right upper/middle lobes-advised to have repeat CT in 3 months Starting on IV Zosyn and Doxy Pneumonia improving slightly Weaned off oxygen Currently on Zosyn plus doxycycline day number 7 out of 7 Repeat chest x-ray PA and lateral view did not show any pneumonia ambulation and right upper lobe which was noted to be present during prior examination Denies any cough and or chest pain with breathing Antibiotic course is finished HYPONATREMIA Sodium of 125 Patient states she did not eat for last few days Gentle fluids normal saline 50 mill per hour Will check serum osmolality, urine osmolality and urine sodium levels BMP every 6 hours Lexapro is on hold Appreciate nephrology input and recommended Sodium level remains stable at 135-does not like to take urine anymore and that will not be given She will a follow-up appointment with PCP within 3 to 4 days HYPERTENSION Continue Coreg and lisinopril GERD On omeprazole Hyperlipidemia On statin Anxiety Continue Lexapro DVT prophylaxis Lovenox Disposition Lives at home Anticipate discharge to home medically stable PT OT evaluation ordered Will be discharged home this afternoon Total Time Total Time Spent Total Time Spent (In Minutes): 45 minutes Discharge Plan Discharge Items Patient Disposition: Home - Self-Care Reason For Visit: PNEUMONIA, HYPONATREMIA Discharge Diagnosis: Acute back pain secondary to thoracic disc protrusion, chronic bilateral ribs fracture, hyponatremia, pneumonia Condition on Discharge: Fair Activity: Resume your previous activity Non-emergency contact: Primary Care Provider Call non-emergency contact if: you have any medication questions and your symptoms worsen Follow-up/Referrals: Cristina Hendricks MD, PhD [Physician] - (The Nephrology office will contact you for a follow up appointment.) Marisela Castro PA-C [Outside Practitioners] - 10/21/23 10:40 am Diet: Heart Healthy Addtl Attending Provider Instructions: Please take extra precautions to avoid falls Take your oxycodone very wisely as it can cause drowsiness, confusion, constipation and addiction Please give appointments with your healthcare providers Please have your electrolytes check during your visit to PCP Pending Studies at Discharge: No Stand-Alone Forms: My Simple, Smoking Cessation Medications and DC Order Prescriptions: New baclofen 10 mg Tablet 5 mg PO TID PRN (Reason: muscle spasm) Qty: 30 0RF prednisone 20 mg Tablet 40 mg PO DAILY Qty: 13 0RF Rx Instructions: 2 p.o. daily for 2 days, 1 and half p.o. daily for 3 days, 1 p.o. daily for 3 days, half p.o. daily for 3 days. potassium chloride 20 mEq Tablet,Er Particles/Crystals 20 meq PO BID Qty: 60 0RF gabapentin 100 mg Capsule 100 mg PO TID Qty: 3 0RF oxycodone 5 mg Tablet 7.5 mg PO Q6H PRN (Reason: pain) Qty: 30 0RF nicotine 14 mg/24 hr patch 24 hour 1 patch transdermal DAILY Qty: 28 0RF Continued carvedilol 3.125 mg tablet 3.125 mg PO BID lisinopril 10 mg tablet 10 mg PO DAILY omeprazole 20 mg capsule,delayed release(DR/EC) 20 mg PO DAILY escitalopram oxalate 20 mg tablet 20 mg PO DAILY rosuvastatin 5 mg tablet 5 mg PO DAILY Discharge Orders: Discharge Order (Routine); Ordered 10/18/23 Ordered By: Mike Mendoza Admission Data Admit Date/Time: 10/09/23 00:15 Attending Provider: Mike Mendoza Admit Provider: Andrew Klein Primary Care Provider: PCP,RUSTAM Other Providers: Andrew Klein; Talib Hollis; Claude Franco; Hang Pinzon Other Interventions: Discharge Summary Assessment (RN) Last Done: 10/18/23 16:09
== END 2023-10-18 17:13 | disposition home or self-care (01) | DRG 194 ==
LOC: ED 14:36 → SUATTDRO 10-09 00:15 → EDINP 10-09 00:15 → 2S 10-09 01:31